=== PATIENT | female | born 1965 | race African-American/Black ===

== ENCOUNTER 2025-03-02 13:56 | Outpatient (AMB) | payer OTHER, SELFPAY ==
--- OUTSIDE RECORDS SUMMARY | 2023-12-17 10:00 | XMS_ITS ---
Author Organization [facility] [address] Address [address] [place] [address] Care Team Providers Care Hoisting Engine Operator Name Role Phone Sharda Guzman Primary Care Provider Unavaila Venice Morris Unavailable [phone] Encounters Encounter Location Date Provider Diagnosis [facility] [address] [facility] [address] [place] [address] 12/17/2023 Venice Quispe Plan Of Treatment Next Appt Details Provider Name:Venice Quispe, 1 05/08/2024 10:15:00 AM, 299 [facility], [address], [address], Provider Name:Venice Quispe, 1 06/12/2024 03:30:00 PM, 299 [facility], [facility] [address], [place], [address], Progress Notes * Rosa REYESOB: 6 (59 yo F)Acc No.[id number]:12/17/2023 Patient: Marika Emely MOON Provider: Kathy Quispe PA-C :1965 A ge:58 Y S ex:Female Date:12/17/2023 Address:[address] [place] [address] Pcp:Sharda Guzman Subjective: * Chief Complaints: * * Medical History: Objective: * Vitals: Assessment: Plan: * Treatment: * Images: Billing Information: * Visit Code: * Procedure Codes: * Electronic signature of Venice Quispe PA-C on 03/02/2025 at 05:51 PM EDT Sign off status: Pending * Provider: Kathy Quispe PA-C Date: 0 12/17/2023 Generated for Pérez mckeon/Noel/Zabrina on: 1 05:51 PM EDT
--- OUTSIDE RECORDS SUMMARY | 2024-01-22 11:30 | XMS_ITS ---
Author Organization [facility] [address] Address [address] [place] [address] Care Team Providers Care Legislative Assistant Name Role Phone Sharda Guzman Primary Care Provider Venice Oconnor Unavailable [phone] Medications Medication SIG (Take, Route, Frequency, Duration) [...] Location Date Provider Diagnosis [facility] [address] [place] [address] 01/22/2024 Venice Quispe Plan Of Treatment Next Appt Details Provider Name:Venice Quispe, 1 05/08/2024 10:15:00 AM, [address] [place] [address], [address], Provider Name:Venice Quispe, 1 06/12/2024 03:30:00 PM, [address] [place] [address], [address], Progress Notes * Rosa REYESOB: 6 (59 yo F)Acc No.[id number]:01/22/2024 Patient: Emely HOUSTON Provider: Kathy Quispe PA-C :1965 A ge:58 Y S ex:Female Date:01/22/2024 Address:[address] [place], [place] [address] Pcp:Sharda Guzman Subjective: * Chief Complaints: * [...] cancer Recent Labs: last yr. PCP: Jorge Guzmna Has had some palpitations, did 4 day [...] of Venice Quispe PA-C on 03/02/2025 at 05:52 PM EDT Sign off status: Pending * Provider: Kathy Quispe PA-C Date: 0 01/22/2024 Generated for Pérez mckeon/Noel/Zabrina on: 1 05:52 PM EDT History and Physical Notes * [...]
--- OUTSIDE RECORDS SUMMARY | 2024-07-19 11:00 | XMS_ITS ---
Author Organization [facility] [address] Address [address] [place] [address] Care Team Providers Care Procurement Cost Coordinator Name Role Phone Sharda Guzman Primary Care Provider Unavaila Venice Morris Unavailable [phone] Encounters Encounter Location Date Provider Diagnosis [facility] [address] [facility] [address] [place] [address] 07/19/2024 Venice Quispe Plan Of Treatment Next Appt Details Provider Name:Venice Quispe, 1 05/08/2024 10:15:00 AM, 299 [facility], [address], [address], Provider Name:Venice Quispe, 1 06/12/2024 03:30:00 PM, 299 [facility], [facility] [address], [place], [address], Progress Notes * Rosa REYESOB: 6 (59 yo F)Acc No.[id number]:07/19/2024 Patient: Marika Emely MOON Provider: Kathy Quispe PA-C :1965 A ge:59 Y S ex:Female Date:07/19/2024 Address:[address] [place] [address] Pcp:Sharda Guzman Subjective: * Chief Complaints: * * Medical History: Objective: * Vitals: Assessment: Plan: * Treatment: * Images: Billing Information: * Visit Code: * Procedure Codes: * Electronic signature of Venice Quispe PA-C on 03/02/2025 at 05:51 PM EDT Sign off status: Pending * Provider: Kathy Quispe PA-C Date: 0 07/19/2024 Generated for Pérez mckeon/Noel/Zabrina on: 1 05:51 PM EDT
--- OUTSIDE RECORDS SUMMARY | 2024-12-21 11:30 | XMS_ITS ---
Author Organization [facility] [address] Address [address] [place] [address] Care Team Providers Care Bulk Receiver Name Role Phone Sharda Guzman Primary Care Provider Venice Oconnor Unavailable [phone] Medications Medication SIG (Take, Route, Frequency, Duration) [...] Date Provider Diagnosis [facility] [address] [address] 12/21/2024 Venice Quispe Plan Of Treatment Next Appt Details Provider Name:Venice Quispe, 1 05/08/2024 10:15:00 AM, [address], [address], Provider Name:Venice Quispe, 1 06/12/2024 03:30:00 PM, [address], [address], Progress Notes * Rosa REYESOB: 6 (59 yo F)Acc No.[id number]:12/21/2024 Patient: Emely HOUSTON Provider: Kathy Quispe PA-C :1965 A ge:59 Y S ex:Female Date:12/21/2024 Address:[address] [place], [place] [address] Pcp:Sharda Guzman Subjective: * Chief Complaints: * [...] 12/21/2024 Generated for Pérez mckeon/Noel/Zabrina on: 1 05:52 PM EDT
--- NOTE | 2025-03-02 13:48 | MHC.PC.OV ---
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 Accompanied by: Self / Same As Patient Allergies sulfamethoxazole (From Bactrim) Allergy (Intermediate, Verified 03/02/25 14:04) lock jaw trimethoprim (From Bactrim) Allergy (Intermediate, Verified 03/02/25 14:04) lock jaw Medication List - Last Reconciled 03/02/25 by Sharda Kent MD aspirin 81 mg PO DAILY semaglutide (weight loss) (Wegovy) 1 mg subcut QWEEK sertraline (Zoloft) 50 mg PO DAILY verapamil ER 300 mg PO BEDTIME Tobacco use date assessed: 03/02/25 Dental Screening Dental Screen Date: 03/02/25 Did you have a dental visit in the last 12 months?: Yes Did you have a dental problem in the last 6 months where you did not have access to dental care?: No Was dental information given to patient?: Patient has dentist HPI HPI Comments History of Present Illness Details The patient is a 59-year-old female presenting for physical and re-establishment of care. Pt also notes she had a fall on her way to appointment at work. Notes some discomfort on right side near hip and lower back. Costochondritis: Recent severe chest pain located under left breast was exacerbated over two weeks. Emergency care was sought. Discharged with plan for OTC meds. Will obtain records Left shoulder pain: Reports of left shoulder pain with significant restriction of motion for several months Anxiety: Reports worsening anxiety with chest fluttering, nighttime awakenings, and disruption of sleep recently. Has been taking sertraline Weight management therapy: Transitioned from Zepbound to Wegovy by weight management provider. Noted reduction in clothing size and improvement in weight. s/p back surgery: Back surgery performed by Dr. Durant; patient reports increased mobility and incorporates exercise in current regimen. Hypertension: compliant with meds Pt also notes episodes of cramping of toes- has trialed magnesium about 1.5 tabs of 250mg Health Maintenance colonoscopy done at [facility] 2022- showed polyps- will obtain pathology report pap smear up to date will schedule bone density- states had menopause for about 20 years Surgical History: - Back surgery - Tubal ligation - Breast surgery Social History: - Works in school setting - Engages in exercise and weight management Review of Systems - HEENT: negative - Cardiovascular: Denies chest pain unrelated to costochondritis - Respiratory: Denies breathing issues - Abdomen: no constipation, no diarrhea - Musculoskeletal: Reports shoulder pain and restricted motion Physical Exam General: NAD HEENT: EOMI, PERRL, mild thyromegaly Chest: CTABL. Card: normal s1, s2 Abd: SNTND, +BS Extremities: no edema Neuro: AOX3 Musculoskeletal- Significant limitation of range of motion in left shoulder, pain with internal and external rotation Assessment and Plan 1. Costochondritis - Use analgesics, and avoid activity-related symptom exacerbation. 2. Left shoulder pain - Get an x-ray, orthopedic evaluation. - Try tylenol prn 3. Anxiety - Increase Sertraline dosage to 75 mg, monitor symptoms. 4. Weight management therapy - Start Wegovy 1.7 mg, confirm if covered by insurance, observe progress. If covered will transition care to PCP office. 5 . Hypertension - continue current regimen 6. Cramps- check magnesium 7. Mild thyromegaly- check thyroid ultrasound Follow up in 2 months Discussion Notes During our visit, I discussed the management options for the patient's ongoing medical issues. For anxiety management, we agreed to increase the Sertraline dosage to 75 mg to better address symptoms. With respect to weight management, a transition to Wegovy 1.7 mg was recommended, ensuring the patient's insurance can adequately cover this medication. I explained her musculoskeletal concerns including the differential diagnosis of possible rotator cuff etiology and the need for further orthopedic evaluation and potential imaging. I touched upon potential injections as an alternative to physical therapy to address shoulder mobility issues, and the patient was responsive to these recommendations. Patient Instructions - Take Sertraline 75 mg daily. - Start Wegovy 1.7 mg as prescribed. - Schedule x-ray for shoulder evaluation. - Follow up in two months or sooner if needed. [facility] Medical History (Updated 03/02/25 @ 17:36 by Sharda Kent MD) Post-menopausal Cramp of toe Left shoulder pain Obesity Routine adult health maintenance Hypertension Surgical History (Updated 03/01/25 @ 15:56 by Maeve Schafer) History of colonoscopy (~11/11/22) Family History (Updated 03/02/25 @ 17:27 by Sharda Kent MD) Other Leukemia Social History Housing: House Patient Tobacco Use Status: Former Tobacco user Years Smoked: occasional back in her 20's e-Cigarette/Vaping Use: Never Used Current occupational status: employed Current occupation: Taxation Inspector Questionnaire AUDIT C Alcohol Use Questionnaire (AUDIT-C) 1. How often do you have a drink containing alcohol?: Never 3. How often do you have six or more drinks on one occasion?: Never Total Score: 0 Physical exam (Primary Care) Vital Signs: Last Vital Signs Temp 97.5 F 03/02/25 14:02 Pulse 72 03/02/25 14:02 Resp 16 03/02/25 14:02 BP 110/64 03/02/25 14:02 Pulse Ox 98 03/02/25 14:02 Oxygen Delivery Method Room Air 03/02/25 14:02 Oxygen Flow Rate 97.5 03/02/25 14:02 BMI result Body Mass Index 30.2 Tobacco/Smoking Status: Tobacco use Status Tobacco use date assessed 03/02/25 03/02/25 13:49 Patient Tobacco Use Status Former Tobacco user 03/02/25 14:15 e-Cigarette/Vaping Use Never Used 03/02/25 14:15 Coding Level of Care Code Est Pt Prev Care 40-64y(87356) Diagnoses Routine adult health maintenance Z00.00 Primary hypertension I10 Hypertension type: primary hypertension Class 1 obesity with body mass index (BMI) of 30.0 to 30.9 in adult, unspecified obesity type, unspecified whether serious comorbidity present E66.9; Z68.30 Obesity type: unspecified obesity type Obesity classification: adult class 1 (BMI 30 - 34.9) Body mass index: BMI 30.0-30.9 Serious obesity comorbidity presence: unspecified whether serious comorbidity present Left shoulder pain, unspecified chronicity M25.512 Chronicity: unspecified Cramp of toe R25.2 Assessment & Plan Assessment & Plan (1) Routine adult health maintenance: Code(s): Z00.00 - Encounter for general adult medical examination without abnormal findings Category: Medical (2) Hypertension: Code(s): I10 - Essential (primary) hypertension Category: Medical Qualifiers: Hypertension type: primary hypertension Qualified Code(s): I10 - Essential (primary) hypertension (3) Obesity: Code(s): E66.9 - Obesity, unspecified Category: Medical Qualifiers: Obesity type: unspecified obesity type Obesity classification: adult class 1 (BMI 30 - 34.9) Body mass index: BMI 30.0-30.9 Serious obesity comorbidity presence: unspecified whether serious comorbidity present Qualified Code(s): E66.9 - Obesity, unspecified; Z68.30 - Body mass index [BMI] 30.0-30.9, adult (4) Left shoulder pain: Code(s): M25.512 - Pain in left shoulder Category: Medical Qualifiers: Chronicity: unspecified Qualified Code(s): M25.512 - Pain in left shoulder (5) Cramp of toe: Code(s): R25.2 - Cramp and spasm Category: Medical Plan - Increase sertraline to 75 mg for anxiety. - Increase Wegovy to 1.7 mg. Verify coverage. - Assess shoulder pain, seek imaging. - Continue dietary and lifestyle modifications for weight management Orders: Orders Lipid Panel Today I10 - Essential (primary) hypertension Complete Blood Count Auto Diff Today Z00.00 - Encounter for general adult medical examination without abnormal findings XR shoulder LT min 2V Today M25.512 - Pain in left shoulder XR DEXA axial skeleton Today Z78.0 - Asymptomatic menopausal state US thyroid Today E01.0 - Iodine-deficiency related diffuse (endemic) goiter Comprehensive Met. Panel Today I10 - Essential (primary) hypertension Magnesium Today R25.2 - Cramp and spasm Referrals Orthopedics Referral M25.512 - Pain in left shoulder Medications: New semaglutide (weight loss) (Wegovy) 1.7 mg (0.75 mL) subcut QWEEK 3 mL 1RF verapamil ER 300 mg PO BEDTIME 90 caps 3RF sertraline (Zoloft) 75 mg (1.5 x 50 mg) PO DAILY 135 tabs 3RF
[2025-03-02 14:02] VITALS: BP 110/64; PULSE 72; RESP 16; TEMP 36.4; O2SAT 98; BMI 30.2
--- OUTSIDE RECORDS SUMMARY | 2025-03-02 17:52 | XMS_ITS | Patient Health Record ---
Author Organization [facility] Address [address] [place] [address] Care Team Providers Care Cotton Converter Name Role Phone Sharda Guzman Primary Care Provider [place] Oconnor Unavailable [phone] Allergies Allergen (clinical drug ingredient) Drug/Non Drug Allergy documented on EMR Reaction Allergy Type Onset Date Status sulfamethoxazole / trimethoprim Bactrim Unknown Drug Allergy Active Reason For Referral No Information Medications Medication SIG (Take, Route, Frequency, Duration) Notes Start Date End Date Status Verapamil HCl ER 300 MG TAKE 1 CAPSULE B Y MOUTH AT BEDTIME Oral; Duration: 90 Days Active Zepbound 5 MG/0.5ML 0.5 mL Subcutaneous; Duration: 30 day(s) Not-Taking Wegovy 1 MG/0.5ML 0.5 mL Subcutaneous once weekly; Duration: 30 days Active Sertraline HCl 50 MG 1 tablet Orally Onc e a day Active Magnesium Glycinate 100 MG TAKE 2 CAPSULES BY MOUTH EVERY DAY Oral; Duration: 30 Days Active Social History Tobacco Use: Social History Observation Description Date Details (start date - stop date) Never Smoker NA - NA Tobacco Use/Smoking Question Answer Notes Are you a nonsmoker Alcohol Screen (Audit-C) Question Answer Notes Did you have a drink containing alcohol in the p ast year? No Points 0 Interpretation Negative Problems Problem Type SNOMED Code ICD Code Onset Dates Problem Status W/U Status Risk Notes Problem Vitamin D deficiency (75951449) Vitamin D deficiency, unspecified (E55.9) Active confirmed Problem Obesity due to excess calories (482927934) Other obesity due to excess calories (E66.09) Active confirmed Problem Anxiety (61214090) Anxiety (F41.9) Active confirmed Problem Thyroid nodule (855589893) Thyroid nodule (E04.1) Active confirmed Problem Obstructive sleep apnea syndrome (06978570) ALEXANDER (obstructive sleep apnea) (G47.33) Active confirmed Problem Obese class II (917947344478256 ) BMI 35.0-35.9,adult (Z68.35) Active confirmed Problem BMI 30+ - obesity (135322522) BMI 32.0-32.9,adult (Z68.32) Active confirmed Problem Primary hypertension (70473533) Primary hypertension (I10) Active confirmed Problem Body mass index 30.00 to 34.99 (626107773286282 ) BMI 31.0-31.9,adult (Z68.31) Active confirmed Problem Body mass index 30.00 to 34.99 (848037188010592 ) BMI 34.0-34.9,adult (Z68.34) Active confirmed Vital Signs Heart Rate 81 /min 01/25/2025 Blood pressure diastolic 82 mm Hg 01/25/2025 Oximetry 99 % 01/25/2025 Height 65.75 in 01/25/2025 Blood pressure systolic 132 mm Hg 01/25/2025 Weight 192.9 lbs 01/25/2025 BMI 31.37 kg/m2 01/25/2025 Encounters Encounter Location Date Provider Diagnosis [facility] [address] [address] 07/21/2024 Venice Svrcek Other obesity due to excess calories E66.09 ; BMI 35.0-35.9,adult Z68.35 ; ALEXANDER (obstructive sleep apnea) G47.33 ; Primary hypertension I10 ; Anxiety F41.9 ; Thyroid nodule E04.1 and Weight loss counseling, encounter for Z71.3 [facility] [address] [address] 08/25/2024 [place] Svrcek Other obesity due to excess calories E66.09 ; BMI 34.0-34.9,adult Z68.34 ; ALEXANDER (obstructive sleep apnea) G47.33 ; Primary hypertension I10 ; Anxiety F41.9 ; Thyroid nodule E04.1 and Weight loss counseling, encounter for Z71.3 [facility] [address] [address] 10/07/2024 [place] Svrcek Other obesity due to excess calories E66.09 ; BMI 32.0-32.9,adult Z68.32 ; ALEXANDER (obstructive sleep apnea) G47.33 ; Primary hypertension I10 and Weight loss counseling, encounter for Z71.3 [facility] [address] [address] 11/04/2024 [place] Svrcek Other obesity due to excess calories E66.09 ; BMI 32.0-32.9,adult Z68.32 ; ALEXANDER (obstructive sleep apnea) G47.33 ; Primary hypertension I10 and Weight loss counseling, encounter for Z71.3 [facility] [address] [address] 01/25/2025 [place] Svrcek Other obesity due to excess calories E66.09 ; BMI 31.0-31.9,adult Z68.31 ; ALEXANDER (obstructive sleep apnea) G47.33 ; Primary hypertension I10 and Weight loss counseling, encounter for Z71.[address] [facility] [address] [place] [address] 06/23/2024 [place] Svrcek [facility] [address] [address] 07/21/2024 [place] Svrcek [facility] [address] [address] 07/26/2024 [place] Svrcek Other obesity due to excess calories E66.09 [facility] [address] [address] 10/07/2024 [place] Svrcek Other obesity due to excess calories E66.[address] [facility] [address] [place] [address] 10/28/2024 [place] Svrcek [facility] [address] [address] 11/04/2024 [place] Svrcek [facility] [address] [place] [address] 11/25/2024 [place] Svrcek [facility] [address] [address] 12/20/2024 [place] Svrcek [facility] [address] [place] [address] 12/22/2024 Venice Quispe Other obesity due to excess calories E66.09 Assessments Encounter Date Diagnosis (ICD Code) Assessment Notes Treatment Notes Treatment Clinical Notes Section Notes 07/21/2024 Other obesity due to excess calories (ICD-10 - E66.09) #Obesity. 07/21/24: 218.4 pounds, BMI 35.5. Welcomed back after long hiatus since her initial consult. Discussed medication options in detail. Most interested in Zepbound. Will prescribe today and start PA process. Discussed we will follow-up with patient pending PA determination. We discussed importance of keeping follow-up visits. Also discussed importance of lifestyle modifications. Continue to work towards increased protein intake with a goal of 80 to 100 g a day, increase water intake and regular exercise. She is awaiting an MRI of her back due to persistent sciatic pain which has limited her exercise. Is to add probiotics daily and B complex. Reviewed risk benefits adverse effects of Zepbound in detail with patient. Demonstrated proper use of pen autoinjector. Will follow-up with me in 1 month sooner with any concerns. #ALEXANDER. Reports history of ALEXANDER. She was given a CPAP machine however was unable to tolerate it and has since returned it. She would benefit from Zepbound. #Hypertension. Has been well-controlled on verapamil. Followed by PCP. #Anxiety. Stable on sertraline and followed by PCP. #Thyroid nodule. Reports history of thyroid nodule with benign biopsy. Denies any personal or family history of thyroid cancer. The patient will continue exercise regimen with an emphasis on improving/increasing steps to at least 6,000-10,000 steps per day. Increasing cardio and strength training exercises as tolerated to improve weight loss and work on building muscle mass. Patient is committed to smarter eating with calorie counting and mindful eating. Limiting processed foods and carbohydrates and increasing leafy greens and lean proteins as well as fruits into their diet. Patient was counseled on the importance of eating local, organic food when possible. Patient has been counseled regarding effects of GLP/GIP-1 agonists and other FDA approved weight loss medications with regards to a multifactorial approach of weight loss as mentioned above and that the medication alone will not be sufficient to meet patients goals. We discussed holistic medication approach with emphasis on lifestyle modification. Discussed obesity as it increases risk of diabetes, cardiovascular disease, and/or organ damage. We spent a lot of time discussing the relationship between food, exercise, sleep, mental health, and obesity. We discussed the importance of having SECAs done every visit and having accountability done during these visits. That the scale is done to monitor not only weight loss but the body composition during medication management and healthy lifestyle changes. We discussed that if the patient is unable at times to financially afford this scale that we would rather waive the fee and have the scale done than have the patient not have the scale obtained. Will follow up with the patient in 4 weeks time to monitor weight loss. Total time was 45 min, greater than 50 % of time was spent on care coordination Case discussed with collaborating physician Dana Matthews who reviewed the assessment and plan. Chart, medications, labs, vital signs reviewed. Dictation was accomplished with the use of [employer] voice recognition software, prone to medical misidentifications and grammatical errors. This is unintentional and the practitioner does try to identify and correct these, but some could still be present. Please do not hesitate to contact practitioner for clarification. All questions answered to patients satisfaction. Patient verbalized understanding of diagnosis and treatments explained. To call sooner prior to next visit it any questions/concerns arise. 07/21/2024 BMI 35.0-35.9,adult (ICD-10 - Z68.35) #Obesity. 07/21/24: 218.4 pounds, BMI 35.5. Welcomed back after long hiatus since her initial consult. Discussed medication options in detail. Most interested in Zepbound. Will prescribe today and start PA process. Discussed we will follow-up with patient pending PA determination. We discussed importance of keeping follow-up visits. Also discussed importance of lifestyle modifications. Continue to work towards increased protein intake with a goal of 80 to 100 g a day, increase water intake and regular exercise. She is awaiting an MRI of her back due to persistent sciatic pain which has limited her exercise. Is to add probiotics daily and B complex. Reviewed risk benefits adverse effects of Zepbound in detail with patient. Demonstrated proper use of pen autoinjector. Will follow-up with me in 1 month sooner with any concerns. #ALEXANDER. Reports history of ALEXANDER. She was given a CPAP machine however was unable to tolerate it and has since returned it. She would benefit from Zepbound. #Hypertension. Has been well-controlled on verapamil. Followed by PCP. #Anxiety. Stable on sertraline and followed by PCP. #Thyroid nodule. Reports history of thyroid nodule with benign biopsy. Denies any personal or family history of thyroid cancer. The patient will continue exercise regimen with an emphasis on improving/increasing steps to at least 6,000-10,000 steps per day. Increasing cardio and strength training exercises as tolerated to improve weight loss and work on building muscle mass. Patient is committed to smarter eating with calorie counting and mindful eating. Limiting processed foods and carbohydrates and increasing leafy greens and lean proteins as well as fruits into their diet. Patient was counseled on the importance of eating local, organic food when possible. Patient has been counseled regarding effects of GLP/GIP-1 agonists and other FDA approved weight loss medications with regards to a multifactorial approach of weight loss as mentioned above and that the medication alone will not be sufficient to meet patients goals. We discussed holistic medication approach with emphasis on lifestyle modification. Discussed obesity as it increases risk of diabetes, cardiovascular disease, and/or organ damage. We spent a lot of time discussing the relationship between food, exercise, sleep, mental health, and obesity. We discussed the importance of having SECAs done every visit and having accountability done during these visits. That the scale is done to monitor not only weight loss but the body composition during medication management and healthy lifestyle changes. We discussed that if the patient is unable at times to financially afford this scale that we would rather waive the fee and have the scale done than have the patient not have the scale obtained. Will follow up with the patient in 4 weeks time to monitor weight loss. Total time was 45 min, greater than 50 % of time was spent on care coordination Case discussed with collaborating physician Dana Matthews who reviewed the assessment and plan. Chart, medications, labs, vital signs reviewed. Dictation was accomplished with the use of [employer] voice recognition software, prone to medical misidentifications and grammatical errors. This is unintentional and the practitioner does try to identify and correct these, but some could still be present. Please do not hesitate to contact practitioner for clarification. All questions answered to patients satisfaction. Patient verbalized understanding of diagnosis and treatments explained. To call sooner prior to next visit it any questions/concerns arise. 07/26/2024 Other obesity due to excess calories (ICD-10 - E66.09) 08/25/2024 Other obesity due to excess calories (ICD-10 - E66.09) #Obesity. 08/25/24: 212.1 pounds, BMI 34.5. She was approved Zepbound and has completed 4 weeks of 2.5 mg dose. She is down 6 pounds and has tolerated it well without side effects. Unfortunately she does have to have spine surgery with lumbar decompression next week. She did hold her dose this week and has been instructed that she may resume postop. Sample of Zepbound 2.5 mg given today advised to resume at 2.5 mg dose for 1 to 2 weeks postop and then can increase to 5 mg dose thereafter. We did discuss importance of bowel regimen postop as well. Follow-up with me in 6 weeks as she will be recovering from surgery. Follow-up sooner with any concerns. #ALEXANDER. Reports history of ALEXANDER. She was given a CPAP machine however was unable to tolerate it and has since returned it. Now on Zepbound. #Hypertension. Has been well-controlled on verapamil. Followed by PCP. #Anxiety. Stable on sertraline and followed by PCP. #Thyroid nodule. Reports history of thyroid nodule with benign biopsy. Denies any personal or family history of thyroid cancer. The patient will continue exercise regimen with an emphasis on improving/increasing steps to at least 6,000-10,000 steps per day. Increasing cardio and strength training exercises as tolerated to improve weight loss and work on building muscle mass. Patient is committed to smarter eating with calorie counting and mindful eating. Limiting processed foods and carbohydrates and increasing leafy greens and lean proteins as well as fruits into their diet. Patient was counseled on the importance of eating local, organic food when possible. Patient has been counseled regarding effects of GLP/GIP-1 agonists and other FDA approved weight loss medications with regards to a multifactorial approach of weight loss as mentioned above and that the medication alone will not be sufficient to meet patients goals. We discussed holistic medication approach with emphasis on lifestyle modification. Discussed obesity as it increases risk of diabetes, cardiovascular disease, and/or organ damage. We spent a lot of time discussing the relationship between food, exercise, sleep, mental health, and obesity. We discussed the importance of having SECAs done every visit and having accountability done during these visits. That the scale is done to monitor not only weight loss but the body composition during medication management and healthy lifestyle changes. We discussed that if the patient is unable at times to financially afford this scale that we would rather waive the fee and have the scale done than have the patient not have the scale obtained. Will follow up with the patient in 4 weeks time to monitor weight loss. Total time was 30 min, greater than 50 % of time was spent on care coordination Case discussed with collaborating physician Dana Matthews who reviewed the assessment and plan. Chart, medications, labs, vital signs reviewed. Dictation was accomplished with the use of [employer] voice recognition software, prone to medical misidentifications and grammatical errors. This is unintentional and the practitioner does try to identify and correct these, but some could still be present. Please do not hesitate to contact practitioner for clarification. All questions answered to patients satisfaction. Patient verbalized understanding of diagnosis and treatments explained. To call sooner prior to next visit it any questions/concerns arise. 08/25/2024 BMI 34.0-34.9,adult (ICD-10 - Z68.34) #Obesity. 08/25/24: 212.1 pounds, BMI 34.5. She was approved Zepbound and has completed 4 weeks of 2.5 mg dose. She is down 6 pounds and has tolerated it well without side effects. Unfortunately she does have to have spine surgery with lumbar decompression next week. She did hold her dose this week and has been instructed that she may resume postop. Sample of Zepbound 2.5 mg given today advised to resume at 2.5 mg dose for 1 to 2 weeks postop and then can increase to 5 mg dose thereafter. We did discuss importance of bowel regimen postop as well. Follow-up with me in 6 weeks as she will be recovering from surgery. Follow-up sooner with any concerns. #ALEXANDER. Reports history of ALEXANDER. She was given a CPAP machine however was unable to tolerate it and has since returned it. Now on Zepbound. #Hypertension. Has been well-controlled on verapamil. Followed by PCP. #Anxiety. Stable on sertraline and followed by PCP. #Thyroid nodule. Reports history of thyroid nodule with benign biopsy. Denies any personal or family history of thyroid cancer. The patient will continue exercise regimen with an emphasis on improving/increasing steps to at least 6,000-10,000 steps per day. Increasing cardio and strength training exercises as tolerated to improve weight loss and work on building muscle mass. Patient is committed to smarter eating with calorie counting and mindful eating. Limiting processed foods and carbohydrates and increasing leafy greens and lean proteins as well as fruits into their diet. Patient was counseled on the importance of eating local, organic food when possible. Patient has been counseled regarding effects of GLP/GIP-1 agonists and other FDA approved weight loss medications with regards to a multifactorial approach of weight loss as mentioned above and that the medication alone will not be sufficient to meet patients goals. We discussed holistic medication approach with emphasis on lifestyle modification. Discussed obesity as it increases risk of diabetes, cardiovascular disease, and/or organ damage. We spent a lot of time discussing the relationship between food, exercise, sleep, mental health, and obesity. We discussed the importance of having SECAs done every visit and having accountability done during these visits. That the scale is done to monitor not only weight loss but the body composition during medication management and healthy lifestyle changes. We discussed that if the patient is unable at times to financially afford this scale that we would rather waive the fee and have the scale done than have the patient not have the scale obtained. Will follow up with the patient in 4 weeks time to monitor weight loss. Total time was 30 min, greater than 50 % of time was spent on care coordination Case discussed with collaborating physician Dana Matthews who reviewed the assessment and plan. Chart, medications, labs, vital signs reviewed. Dictation was accomplished with the use of [employer] voice recognition software, prone to medical misidentifications and grammatical errors. This is unintentional and the practitioner does try to identify and correct these, but some could still be present. Please do not hesitate to contact practitioner for clarification. All questions answered to patients satisfaction. Patient verbalized understanding of diagnosis and treatments explained. To call sooner prior to next visit it any questions/concerns arise. 10/07/2024 Other obesity due to excess calories (ICD-10 - E66.09) #Obesity. 10/07/24: 201.6 pounds, BMI 32.8. She is doing fantastic on Zepbound 5 mg. She is healing well from her surgery and will slowly increase exercise as dictated by her surgeon. Continue consistent protein intake and hydration. Will continue current regimen and follow-up with me again in 1 month. Follow-up sooner with any concerns. #ALEXANDER. Reports history of ALEXANDER. She was given a CPAP machine however was unable to tolerate it and has since returned it. Now on Zepbound. #Hypertension. Has been well-controlled on verapamil. Followed by PCP. The patient will continue exercise regimen with an emphasis on improving/increasing steps to at least 6,000-10,000 steps per day. Increasing cardio and strength training exercises as tolerated to improve weight loss and work on building muscle mass. Patient is committed to smarter eating with calorie counting and mindful eating. Limiting processed foods and carbohydrates and increasing leafy greens and lean proteins as well as fruits into their diet. Patient was counseled on the importance of eating local, organic food when possible. Patient has been counseled regarding effects of GLP/GIP-1 agonists and other FDA approved weight loss medications with regards to a multifactorial approach of weight loss as mentioned above and that the medication alone will not be sufficient to meet patients goals. We discussed holistic medication approach with emphasis on lifestyle modification. Discussed obesity as it increases risk of diabetes, cardiovascular disease, and/or organ damage. We spent a lot of time discussing the relationship between food, exercise, sleep, mental health, and obesity. We discussed the importance of having SECAs done every visit and having accountability done during these visits. That the scale is done to monitor not only weight loss but the body composition during medication management and healthy lifestyle changes. We discussed that if the patient is unable at times to financially afford this scale that we would rather waive the fee and have the scale done than have the patient not have the scale obtained. Will follow up with the patient in 4 weeks time to monitor weight loss. Total time was 30 min, greater than 50 % of time was spent on care coordination Case discussed with collaborating physician Dana Matthews who reviewed the assessment and plan. Chart, medications, labs, vital signs reviewed. Dictation was accomplished with the use of [employer] voice recognition software, prone to medical misidentifications and grammatical errors. This is unintentional and the practitioner does try to identify and correct these, but some could still be present. Please do not hesitate to contact practitioner for clarification. All questions answered to patients satisfaction. Patient verbalized understanding of diagnosis and treatments explained. To call sooner prior to next visit it any questions/concerns arise. 10/07/2024 BMI 32.0-32.9,adult (ICD-10 - Z68.32) #Obesity. 10/07/24: 201.6 pounds, BMI 32.8. She is doing fantastic on Zepbound 5 mg. She is healing well from her surgery and will slowly increase exercise as dictated by her surgeon. Continue consistent protein intake and hydration. Will continue current regimen and follow-up with me again in 1 month. Follow-up sooner with any concerns. #ALEXANDER. Reports history of ALEXANDER. She was given a CPAP machine however was unable to tolerate it and has since returned it. Now on Zepbound. #Hypertension. Has been well-controlled on verapamil. Followed by PCP. The patient will continue exercise regimen with an emphasis on improving/increasing steps to at least 6,000-10,000 steps per day. Increasing cardio and strength training exercises as tolerated to improve weight loss and work on building muscle mass. Patient is committed to smarter eating with calorie counting and mindful eating. Limiting processed foods and carbohydrates and increasing leafy greens and lean proteins as well as fruits into their diet. Patient was counseled on the importance of eating local, organic food when possible. Patient has been counseled regarding effects of GLP/GIP-1 agonists and other FDA approved weight loss medications with regards to a multifactorial approach of weight loss as mentioned above and that the medication alone will not be sufficient to meet patients goals. We discussed holistic medication approach with emphasis on lifestyle modification. Discussed obesity as it increases risk of diabetes, cardiovascular disease, and/or organ damage. We spent a lot of time discussing the relationship between food, exercise, sleep, mental health, and obesity. We discussed the importance of having SECAs done every visit and having accountability done during these visits. That the scale is done to monitor not only weight loss but the body composition during medication management and healthy lifestyle changes. We discussed that if the patient is unable at times to financially afford this scale that we would rather waive the fee and have the scale done than have the patient not have the scale obtained. Will follow up with the patient in 4 weeks time to monitor weight loss. Total time was 30 min, greater than 50 % of time was spent on care coordination Case discussed with collaborating physician Dana Matthews who reviewed the assessment and plan. Chart, medications, labs, vital signs reviewed. Dictation was accomplished with the use of [employer] voice recognition software, prone to medical misidentifications and grammatical errors. This is unintentional and the practitioner does try to identify and correct these, but some could still be present. Please do not hesitate to contact practitioner for clarification. All questions answered to patients satisfaction. Patient verbalized understanding of diagnosis and treatments explained. To call sooner prior to next visit it any questions/concerns arise. 10/07/2024 Other obesity due to excess calories (ICD-10 - E66.09) 11/04/2024 Other obesity due to excess calories (ICD-10 - E66.09) #Obesity. 11/04/24: 197.4 pounds, BMI 32.1. She is doing well on Zepbound 5 mg. Unfortunately her insurance has changed this month and current plan does not cover Zepbound. She does think that they cover Wegovy. Will transition to Wegovy 0.25 mg dose. Discussed proper use and demonstrated pen autoinjector here in office. Reviewed risk benefits adverse effects of medication. Discussed we will titrate up her dose. Continue to work on consistent protein intake, hydration and regular exercise. Follow-up with me in 1 month sooner with any concerns. #ALEXANDER. Reports history of ALEXANDER. She was given a CPAP machine however was unable to tolerate it and has since returned it. #Hypertension. Has been well-controlled on verapamil. Followed by PCP. The patient will continue exercise regimen with an emphasis on improving/increasing steps to at least 6,000-10,000 steps per day. Increasing cardio and strength training exercises as tolerated to improve weight loss and work on building muscle mass. Patient is committed to smarter eating with calorie counting and mindful eating. Limiting processed foods and carbohydrates and increasing leafy greens and lean proteins as well as fruits into their diet. Patient was counseled on the importance of eating local, organic food when possible. Patient has been counseled regarding effects of GLP/GIP-1 agonists and other FDA approved weight loss medications with regards to a multifactorial approach of weight loss as mentioned above and that the medication alone will not be sufficient to meet patients goals. We discussed holistic medication approach with emphasis on lifestyle modification. Discussed obesity as it increases risk of diabetes, cardiovascular disease, and/or organ damage. We spent a lot of time discussing the relationship between food, exercise, sleep, mental health, and obesity. We discussed the importance of having SECAs done every visit and having accountability done during these visits. That the scale is done to monitor not only weight loss but the body composition during medication management and healthy lifestyle changes. We discussed that if the patient is unable at times to financially afford this scale that we would rather waive the fee and have the scale done than have the patient not have the scale obtained. Will follow up with the patient in 4 weeks time to monitor weight loss. Total time was 30 min, greater than 50 % of time was spent on care coordination Case discussed with collaborating physician Dana Matthews who reviewed the assessment and plan. Chart, medications, labs, vital signs reviewed. Dictation was accomplished with the use of [employer] voice recognition software, prone to medical misidentifications and grammatical errors. This is unintentional and the practitioner does try to identify and correct these, but some could still be present. Please do not hesitate to contact practitioner for clarification. All questions answered to patients satisfaction. Patient verbalized understanding of diagnosis and treatments explained. To call sooner prior to next visit it any questions/concerns arise. 11/04/2024 BMI 32.0-32.9,adult (ICD-10 - Z68.32) #Obesity. 11/04/24: 197.4 pounds, BMI 32.1. She is doing well on Zepbound 5 mg. Unfortunately her insurance has changed this month and current plan does not cover Zepbound. She does think that they cover Wegovy. Will transition to Wegovy 0.25 mg dose. Discussed proper use and demonstrated pen autoinjector here in office. Reviewed risk benefits adverse effects of medication. Discussed we will titrate up her dose. Continue to work on consistent protein intake, hydration and regular exercise. Follow-up with me in 1 month sooner with any concerns. #ALEXANDER. Reports history of ALEXANDER. She was given a CPAP machine however was unable to tolerate it and has since returned it. #Hypertension. Has been well-controlled on verapamil. Followed by PCP. The patient will continue exercise regimen with an emphasis on improving/increasing steps to at least 6,000-10,000 steps per day. Increasing cardio and strength training exercises as tolerated to improve weight loss and work on building muscle mass. Patient is committed to smarter eating with calorie counting and mindful eating. Limiting processed foods and carbohydrates and increasing leafy greens and lean proteins as well as fruits into their diet. Patient was counseled on the importance of eating local, organic food when possible. Patient has been counseled regarding effects of GLP/GIP-1 agonists and other FDA approved weight loss medications with regards to a multifactorial approach of weight loss as mentioned above and that the medication alone will not be sufficient to meet patients goals. We discussed holistic medication approach with emphasis on lifestyle modification. Discussed obesity as it increases risk of diabetes, cardiovascular disease, and/or organ damage. We spent a lot of time discussing the relationship between food, exercise, sleep, mental health, and obesity. We discussed the importance of having SECAs done every visit and having accountability done during these visits. That the scale is done to monitor not only weight loss but the body composition during medication management and healthy lifestyle changes. We discussed that if the patient is unable at times to financially afford this scale that we would rather waive the fee and have the scale done than have the patient not have the scale obtained. Will follow up with the patient in 4 weeks time to monitor weight loss. Total time was 30 min, greater than 50 % of time was spent on care coordination Case discussed with collaborating physician Dana Matthews who reviewed the assessment and plan. Chart, medications, labs, vital signs reviewed. Dictation was accomplished with the use of [employer] voice recognition software, prone to medical misidentifications and grammatical errors. This is unintentional and the practitioner does try to identify and correct these, but some could still be present. Please do not hesitate to contact practitioner for clarification. All questions answered to patients satisfaction. Patient verbalized understanding of diagnosis and treatments explained. To call sooner prior to next visit it any questions/concerns arise. 12/22/2024 Other obesity due to excess calories (ICD-10 - E66.09) 01/25/2025 Other obesity due to excess calories (ICD-10 - E66.09) #Obesity. 01/25/25: 192.9 pounds, BMI 31.4. She is doing well on Wegovy 0.5 mg weekly. Will plan to increase to 1 mg dose on next refill. Continue with consistent exercise, hydration and regular protein intake. Follow-up with me again in 1 month sooner with any concerns. #ALEXANDER. Reports history of ALEXANDER. She was given a CPAP machine however was unable to tolerate it and has since returned it. Working on weight reduction. #Hypertension. Has been well-controlled on verapamil. Followed by PCP. The patient will continue exercise regimen with an emphasis on improving/increasing steps to at least 6,000-10,000 steps per day. Increasing cardio and strength training exercises as tolerated to improve weight loss and work on building muscle mass. Patient is committed to smarter eating with calorie counting and mindful eating. Limiting processed foods and carbohydrates and increasing leafy greens and lean proteins as well as fruits into their diet. Patient was counseled on the importance of eating local, organic food when possible. Patient has been counseled regarding effects of GLP/GIP-1 agonists and other FDA approved weight loss medications with regards to a multifactorial approach of weight loss as mentioned above and that the medication alone will not be sufficient to meet patients goals. We discussed holistic medication approach with emphasis on lifestyle modification. Discussed obesity as it increases risk of diabetes, cardiovascular disease, and/or organ damage. We spent a lot of time discussing the relationship between food, exercise, sleep, mental health, and obesity. We discussed the importance of having SECAs done every visit and having accountability done during these visits. That the scale is done to monitor not only weight loss but the body composition during medication management and healthy lifestyle changes. We discussed that if the patient is unable at times to financially afford this scale that we would rather waive the fee and have the scale done than have the patient not have the scale obtained. Will follow up with the patient in 4 weeks time to monitor weight loss. Total time was 30 min, greater than 50 % of time was spent on care coordination Case discussed with collaborating physician Dana Matthews who reviewed the assessment and plan. Chart, medications, labs, vital signs reviewed. Dictation was accomplished with the use of [employer] voice recognition software, prone to medical misidentifications and grammatical errors. This is unintentional and the practitioner does try to identify and correct these, but some could still be present. Please do not hesitate to contact practitioner for clarification. All questions answered to patients satisfaction. Patient verbalized understanding of diagnosis and treatments explained. To call sooner prior to next visit it any questions/concerns arise. 01/25/2025 BMI 31.0-31.9,adult (ICD-10 - Z68.31) #Obesity. 01/25/25: 192.9 pounds, BMI 31.4. She is doing well on Wegovy 0.5 mg weekly. Will plan to increase to 1 mg dose on next refill. Continue with consistent exercise, hydration and regular protein intake. Follow-up with me again in 1 month sooner with any concerns. #ALEXANDER. Reports history of ALEXANDER. She was given a CPAP machine however was unable to tolerate it and has since returned it. Working on weight reduction. #Hypertension. Has been well-controlled on verapamil. Followed by PCP. The patient will continue exercise regimen with an emphasis on improving/increasing steps to at least 6,000-10,000 steps per day. Increasing cardio and strength training exercises as tolerated to improve weight loss and work on building muscle mass. Patient is committed to smarter eating with calorie counting and mindful eating. Limiting processed foods and carbohydrates and increasing leafy greens and lean proteins as well as fruits into their diet. Patient was counseled on the importance of eating local, organic food when possible. Patient has been counseled regarding effects of GLP/GIP-1 agonists and other FDA approved weight loss medications with regards to a multifactorial approach of weight loss as mentioned above and that the medication alone will not be sufficient to meet patients goals. We discussed holistic medication approach with emphasis on lifestyle modification. Discussed obesity as it increases risk of diabetes, cardiovascular disease, and/or organ damage. We spent a lot of time discussing the relationship between food, exercise, sleep, mental health, and obesity. We discussed the importance of having SECAs done every visit and having accountability done during these visits. That the scale is done to monitor not only weight loss but the body composition during medication management and healthy lifestyle changes. We discussed that if the patient is unable at times to financially afford this scale that we would rather waive the fee and have the scale done than have the patient not have the scale obtained. Will follow up with the patient in 4 weeks time to monitor weight loss. Total time was 30 min, greater than 50 % of time was spent on care coordination Case discussed with collaborating physician Dana Mtathews who reviewed the assessment and plan. Chart, medications, labs, vital signs reviewed. Dictation was accomplished with the use of [employer] voice recognition software, prone to medical misidentifications and grammatical errors. This is unintentional and the practitioner does try to identify and correct these, but some could still be present. Please do not hesitate to contact practitioner for clarification. All questions answered to patients satisfaction. Patient verbalized understanding of diagnosis and treatments explained. To call sooner prior to next visit it any questions/concerns arise. 07/21/2024 ALEXANDER (obstructive sleep apnea) (ICD-10 - G47.33) #Obesity. 07/21/24: 218.4 pounds, BMI 35.5. Welcomed back after long hiatus since her initial consult. Discussed medication options in detail. Most interested in Zepbound. Will prescribe today and start PA process. Discussed we will follow-up with patient pending PA determination. We discussed importance of keeping follow-up visits. Also discussed importance of lifestyle modifications. Continue to work towards increased protein intake with a goal of 80 to 100 g a day, increase water intake and regular exercise. She is awaiting an MRI of her back due to persistent sciatic pain which has limited her exercise. Is to add probiotics daily and B complex. Reviewed risk benefits adverse effects of Zepbound in detail with patient. Demonstrated proper use of pen autoinjector. Will follow-up with me in 1 month sooner with any concerns. #ALEXANDER. Reports history of ALEXANDER. She was given a CPAP machine however was unable to tolerate it and has since returned it. She would benefit from Zepbound. #Hypertension. Has been well-controlled on verapamil. Followed by PCP. #Anxiety. Stable on sertraline and followed by PCP. #Thyroid nodule. Reports history of thyroid nodule with benign biopsy. Denies any personal or family history of thyroid cancer. The patient will continue exercise regimen with an emphasis on improving/increasing steps to at least 6,000-10,000 steps per day. Increasing cardio and strength training exercises as tolerated to improve weight loss and work on building muscle mass. Patient is committed to smarter eating with calorie counting and mindful eating. Limiting processed foods and carbohydrates and increasing leafy greens and lean proteins as well as fruits into their diet. Patient was counseled on the importance of eating local, organic food when possible. Patient has been counseled regarding effects of GLP/GIP-1 agonists and other FDA approved weight loss medications with regards to a multifactorial approach of weight loss as mentioned above and that the medication alone will not be sufficient to meet patients goals. We discussed holistic medication approach with emphasis on lifestyle modification. Discussed obesity as it increases risk of diabetes, cardiovascular disease, and/or organ damage. We spent a lot of time discussing the relationship between food, exercise, sleep, mental health, and obesity. We discussed the importance of having SECAs done every visit and having accountability done during these visits. That the scale is done to monitor not only weight loss but the body composition during medication management and healthy lifestyle changes. We discussed that if the patient is unable at times to financially afford this scale that we would rather waive the fee and have the scale done than have the patient not have the scale obtained. Will follow up with the patient in 4 weeks time to monitor weight loss. Total time was 45 min, greater than 50 % of time was spent on care coordination Case discussed with collaborating physician Dana Matthews who reviewed the assessment and plan. Chart, medications, labs, vital signs reviewed. Dictation was accomplished with the use of [employer] voice recognition software, prone to medical misidentifications and grammatical errors. This is unintentional and the practitioner does try to identify and correct these, but some could still be present. Please do not hesitate to contact practitioner for clarification. All questions answered to patients satisfaction. Patient verbalized understanding of diagnosis and treatments explained. To call sooner prior to next visit it any questions/concerns arise. 01/25/2025 ALEXANDER (obstructive sleep apnea) (ICD-10 - G47.33) #Obesity. 01/25/25: 192.9 pounds, BMI 31.4. She is doing well on Wegovy 0.5 mg weekly. Will plan to increase to 1 mg dose on next refill. Continue with consistent exercise, hydration and regular protein intake. Follow-up with me again in 1 month sooner with any concerns. #ALEXANDER. Reports history of ALEXANDER. She was given a CPAP machine however was unable to tolerate it and has since returned it. Working on weight reduction. #Hypertension. Has been well-controlled on verapamil. Followed by PCP. The patient will continue exercise regimen with an emphasis on improving/increasing steps to at least 6,000-10,000 steps per day. Increasing cardio and strength training exercises as tolerated to improve weight loss and work on building muscle mass. Patient is committed to smarter eating with calorie counting and mindful eating. Limiting processed foods and carbohydrates and increasing leafy greens and lean proteins as well as fruits into their diet. Patient was counseled on the importance of eating local, organic food when possible. Patient has been counseled regarding effects of GLP/GIP-1 agonists and other FDA approved weight loss medications with regards to a multifactorial approach of weight loss as mentioned above and that the medication alone will not be sufficient to meet patients goals. We discussed holistic medication approach with emphasis on lifestyle modification. Discussed obesity as it increases risk of diabetes, cardiovascular disease, and/or organ damage. We spent a lot of time discussing the relationship between food, exercise, sleep, mental health, and obesity. We discussed the importance of having SECAs done every visit and having accountability done during these visits. That the scale is done to monitor not only weight loss but the body composition during medication management and healthy lifestyle changes. We discussed that if the patient is unable at times to financially afford this scale that we would rather waive the fee and have the scale done than have the patient not have the scale obtained. Will follow up with the patient in 4 weeks time to monitor weight loss. Total time was 30 min, greater than 50 % of time was spent on care coordination Case discussed with collaborating physician Dana Matthews who reviewed the assessment and plan. Chart, medications, labs, vital signs reviewed. Dictation was accomplished with the use of [employer] voice recognition software, prone to medical misidentifications and grammatical errors. This is unintentional and the practitioner does try to identify and correct these, but some could still be present. Please do not hesitate to contact practitioner for clarification. All questions answered to patients satisfaction. Patient verbalized understanding of diagnosis and treatments explained. To call sooner prior to next visit it any questions/concerns arise. 11/04/2024 ALEXANDER (obstructive sleep apnea) (ICD-10 - G47.33) #Obesity. 11/04/24: 197.4 pounds, BMI 32.1. She is doing well on Zepbound 5 mg. Unfortunately her insurance has changed this month and current plan does not cover Zepbound. She does think that they cover Wegovy. Will transition to Wegovy 0.25 mg dose. Discussed proper use and demonstrated pen autoinjector here in office. Reviewed risk benefits adverse effects of medication. Discussed we will titrate up her dose. Continue to work on consistent protein intake, hydration and regular exercise. Follow-up with me in 1 month sooner with any concerns. #ALEXANDER. Reports history of ALEXANDER. She was given a CPAP machine however was unable to tolerate it and has since returned it. #Hypertension. Has been well-controlled on verapamil. Followed by PCP. The patient will continue exercise regimen with an emphasis on improving/increasing steps to at least 6,000-10,000 steps per day. Increasing cardio and strength training exercises as tolerated to improve weight loss and work on building muscle mass. Patient is committed to smarter eating with calorie counting and mindful eating. Limiting processed foods and carbohydrates and increasing leafy greens and lean proteins as well as fruits into their diet. Patient was counseled on the importance of eating local, organic food when possible. Patient has been counseled regarding effects of GLP/GIP-1 agonists and other FDA approved weight loss medications with regards to a multifactorial approach of weight loss as mentioned above and that the medication alone will not be sufficient to meet patients goals. We discussed holistic medication approach with emphasis on lifestyle modification. Discussed obesity as it increases risk of diabetes, cardiovascular disease, and/or organ damage. We spent a lot of time discussing the relationship between food, exercise, sleep, mental health, and obesity. We discussed the importance of having SECAs done every visit and having accountability done during these visits. That the scale is done to monitor not only weight loss but the body composition during medication management and healthy lifestyle changes. We discussed that if the patient is unable at times to financially afford this scale that we would rather waive the fee and have the scale done than have the patient not have the scale obtained. Will follow up with the patient in 4 weeks time to monitor weight loss. Total time was 30 min, greater than 50 % of time was spent on care coordination Case discussed with collaborating physician Dana Matthews who reviewed the assessment and plan. Chart, medications, labs, vital signs reviewed. Dictation was accomplished with the use of [employer] voice recognition software, prone to medical misidentifications and grammatical errors. This is unintentional and the practitioner does try to identify and correct these, but some could still be present. Please do not hesitate to contact practitioner for clarification. All questions answered to patients satisfaction. Patient verbalized understanding of diagnosis and treatments explained. To call sooner prior to next visit it any questions/concerns arise. 10/07/2024 ALEXANDER (obstructive sleep apnea) (ICD-10 - G47.33) #Obesity. 10/07/24: 201.6 pounds, BMI 32.8. She is doing fantastic on Zepbound 5 mg. She is healing well from her surgery and will slowly increase exercise as dictated by her surgeon. Continue consistent protein intake and hydration. Will continue current regimen and follow-up with me again in 1 month. Follow-up sooner with any concerns. #ALEXANDER. Reports history of ALEXANDER. She was given a CPAP machine however was unable to tolerate it and has since returned it. Now on Zepbound. #Hypertension. Has been well-controlled on verapamil. Followed by PCP. The patient will continue exercise regimen with an emphasis on improving/increasing steps to at least 6,000-10,000 steps per day. Increasing cardio and strength training exercises as tolerated to improve weight loss and work on building muscle mass. Patient is committed to smarter eating with calorie counting and mindful eating. Limiting processed foods and carbohydrates and increasing leafy greens and lean proteins as well as fruits into their diet. Patient was counseled on the importance of eating local, organic food when possible. Patient has been counseled regarding effects of GLP/GIP-1 agonists and other FDA approved weight loss medications with regards to a multifactorial approach of weight loss as mentioned above and that the medication alone will not be sufficient to meet patients goals. We discussed holistic medication approach with emphasis on lifestyle modification. Discussed obesity as it increases risk of diabetes, cardiovascular disease, and/or organ damage. We spent a lot of time discussing the relationship between food, exercise, sleep, mental health, and obesity. We discussed the importance of having SECAs done every visit and having accountability done during these visits. That the scale is done to monitor not only weight loss but the body composition during medication management and healthy lifestyle changes. We discussed that if the patient is unable at times to financially afford this scale that we would rather waive the fee and have the scale done than have the patient not have the scale obtained. Will follow up with the patient in 4 weeks time to monitor weight loss. Total time was 30 min, greater than 50 % of time was spent on care coordination Case discussed with collaborating physician Dana Matthews who reviewed the assessment and plan. Chart, medications, labs, vital signs reviewed. Dictation was accomplished with the use of [employer] voice recognition software, prone to medical misidentifications and grammatical errors. This is unintentional and the practitioner does try to identify and correct these, but some could still be present. Please do not hesitate to contact practitioner for clarification. All questions answered to patients satisfaction. Patient verbalized understanding of diagnosis and treatments explained. To call sooner prior to next visit it any questions/concerns arise. 08/25/2024 ALEXANDER (obstructive sleep apnea) (ICD-10 - G47.33) #Obesity. 08/25/24: 212.1 pounds, BMI 34.5. She was approved Zepbound and has completed 4 weeks of 2.5 mg dose. She is down 6 pounds and has tolerated it well without side effects. Unfortunately she does have to have spine surgery with lumbar decompression next week. She did hold her dose this week and has been instructed that she may resume postop. Sample of Zepbound 2.5 mg given today advised to resume at 2.5 mg dose for 1 to 2 weeks postop and then can increase to 5 mg dose thereafter. We did discuss importance of bowel regimen postop as well. Follow-up with me in 6 weeks as she will be recovering from surgery. Follow-up sooner with any concerns. #ALEXANDER. Reports history of ALEXANDER. She was given a CPAP machine however was unable to tolerate it and has since returned it. Now on Zepbound. #Hypertension. Has been well-controlled on verapamil. Followed by PCP. #Anxiety. Stable on sertraline and followed by PCP. #Thyroid nodule. Reports history of thyroid nodule with benign biopsy. Denies any personal or family history of thyroid cancer. The patient will continue exercise regimen with an emphasis on improving/increasing steps to at least 6,000-10,000 steps per day. Increasing cardio and strength training exercises as tolerated to improve weight loss and work on building muscle mass. Patient is committed to smarter eating with calorie counting and mindful eating. Limiting processed foods and carbohydrates and increasing leafy greens and lean proteins as well as fruits into their diet. Patient was counseled on the importance of eating local, organic food when possible. Patient has been counseled regarding effects of GLP/GIP-1 agonists and other FDA approved weight loss medications with regards to a multifactorial approach of weight loss as mentioned above and that the medication alone will not be sufficient to meet patients goals. We discussed holistic medication approach with emphasis on lifestyle modification. Discussed obesity as it increases risk of diabetes, cardiovascular disease, and/or organ damage. We spent a lot of time discussing the relationship between food, exercise, sleep, mental health, and obesity. We discussed the importance of having SECAs done every visit and having accountability done during these visits. That the scale is done to monitor not only weight loss but the body composition during medication management and healthy lifestyle changes. We discussed that if the patient is unable at times to financially afford this scale that we would rather waive the fee and have the scale done than have the patient not have the scale obtained. Will follow up with the patient in 4 weeks time to monitor weight loss. Total time was 30 min, greater than 50 % of time was spent on care coordination Case discussed with collaborating physician Dana Matthews who reviewed the assessment and plan. Chart, medications, labs, vital signs reviewed. Dictation was accomplished with the use of [employer] voice recognition software, prone to medical misidentifications and grammatical errors. This is unintentional and the practitioner does try to identify and correct these, but some could still be present. Please do not hesitate to contact practitioner for clarification. All questions answered to patients satisfaction. Patient verbalized understanding of diagnosis and treatments explained. To call sooner prior to next visit it any questions/concerns arise. 07/21/2024 Primary hypertension (ICD-10 - I10) #Obesity. 07/21/24: 218.4 pounds, BMI 35.5. Welcomed back after long hiatus since her initial consult. Discussed medication options in detail. Most interested in Zepbound. Will prescribe today and start PA process. Discussed we will follow-up with patient pending PA determination. We discussed importance of keeping follow-up visits. Also discussed importance of lifestyle modifications. Continue to work towards increased protein intake with a goal of 80 to 100 g a day, increase water intake and regular exercise. She is awaiting an MRI of her back due to persistent sciatic pain which has limited her exercise. Is to add probiotics daily and B complex. Reviewed risk benefits adverse effects of Zepbound in detail with patient. Demonstrated proper use of pen autoinjector. Will follow-up with me in 1 month sooner with any concerns. #ALEXANDER. Reports history of ALEXANDER. She was given a CPAP machine however was unable to tolerate it and has since returned it. She would benefit from Zepbound. #Hypertension. Has been well-controlled on verapamil. Followed by PCP. #Anxiety. Stable on sertraline and followed by PCP. #Thyroid nodule. Reports history of thyroid nodule with benign biopsy. Denies any personal or family history of thyroid cancer. The patient will continue exercise regimen with an emphasis on improving/increasing steps to at least 6,000-10,000 steps per day. Increasing cardio and strength training exercises as tolerated to improve weight loss and work on building muscle mass. Patient is committed to smarter eating with calorie counting and mindful eating. Limiting processed foods and carbohydrates and increasing leafy greens and lean proteins as well as fruits into their diet. Patient was counseled on the importance of eating local, organic food when possible. Patient has been counseled regarding effects of GLP/GIP-1 agonists and other FDA approved weight loss medications with regards to a multifactorial approach of weight loss as mentioned above and that the medication alone will not be sufficient to meet patients goals. We discussed holistic medication approach with emphasis on lifestyle modification. Discussed obesity as it increases risk of diabetes, cardiovascular disease, and/or organ damage. We spent a lot of time discussing the relationship between food, exercise, sleep, mental health, and obesity. We discussed the importance of having SECAs done every visit and having accountability done during these visits. That the scale is done to monitor not only weight loss but the body composition during medication management and healthy lifestyle changes. We discussed that if the patient is unable at times to financially afford this scale that we would rather waive the fee and have the scale done than have the patient not have the scale obtained. Will follow up with the patient in 4 weeks time to monitor weight loss. Total time was 45 min, greater than 50 % of time was spent on care coordination Case discussed with collaborating physician Dana Matthews who reviewed the assessment and plan. Chart, medications, labs, vital signs reviewed. Dictation was accomplished with the use of [employer] voice recognition software, prone to medical misidentifications and grammatical errors. This is unintentional and the practitioner does try to identify and correct these, but some could still be present. Please do not hesitate to contact practitioner for clarification. All questions answered to patients satisfaction. Patient verbalized understanding of diagnosis and treatments explained. To call sooner prior to next visit it any questions/concerns arise. 08/25/2024 Primary hypertension (ICD-10 - I10) #Obesity. 08/25/24: 212.1 pounds, BMI 34.5. She was approved Zepbound and has completed 4 weeks of 2.5 mg dose. She is down 6 pounds and has tolerated it well without side effects. Unfortunately she does have to have spine surgery with lumbar decompression next week. She did hold her dose this week and has been instructed that she may resume postop. Sample of Zepbound 2.5 mg given today advised to resume at 2.5 mg dose for 1 to 2 weeks postop and then can increase to 5 mg dose thereafter. We did discuss importance of bowel regimen postop as well. Follow-up with me in 6 weeks as she will be recovering from surgery. Follow-up sooner with any concerns. #ALEXANDER. Reports history of ALEXANDER. She was given a CPAP machine however was unable to tolerate it and has since returned it. Now on Zepbound. #Hypertension. Has been well-controlled on verapamil. Followed by PCP. #Anxiety. Stable on sertraline and followed by PCP. #Thyroid nodule. Reports history of thyroid nodule with benign biopsy. Denies any personal or family history of thyroid cancer. The patient will continue exercise regimen with an emphasis on improving/increasing steps to at least 6,000-10,000 steps per day. Increasing cardio and strength training exercises as tolerated to improve weight loss and work on building muscle mass. Patient is committed to smarter eating with calorie counting and mindful eating. Limiting processed foods and carbohydrates and increasing leafy greens and lean proteins as well as fruits into their diet. Patient was counseled on the importance of eating local, organic food when possible. Patient has been counseled regarding effects of GLP/GIP-1 agonists and other FDA approved weight loss medications with regards to a multifactorial approach of weight loss as mentioned above and that the medication alone will not be sufficient to meet patients goals. We discussed holistic medication approach with emphasis on lifestyle modification. Discussed obesity as it increases risk of diabetes, cardiovascular disease, and/or organ damage. We spent a lot of time discussing the relationship between food, exercise, sleep, mental health, and obesity. We discussed the importance of having SECAs done every visit and having accountability done during these visits. That the scale is done to monitor not only weight loss but the body composition during medication management and healthy lifestyle changes. We discussed that if the patient is unable at times to financially afford this scale that we would rather waive the fee and have the scale done than have the patient not have the scale obtained. Will follow up with the patient in 4 weeks time to monitor weight loss. Total time was 30 min, greater than 50 % of time was spent on care coordination Case discussed with collaborating physician Dana Matthews who reviewed the assessment and plan. Chart, medications, labs, vital signs reviewed. Dictation was accomplished with the use of [employer] voice recognition software, prone to medical misidentifications and grammatical errors. This is unintentional and the practitioner does try to identify and correct these, but some could still be present. Please do not hesitate to contact practitioner for clarification. All questions answered to patients satisfaction. Patient verbalized understanding of diagnosis and treatments explained. To call sooner prior to next visit it any questions/concerns arise. 10/07/2024 Primary hypertension (ICD-10 - I10) #Obesity. 10/07/24: 201.6 pounds, BMI 32.8. She is doing fantastic on Zepbound 5 mg. She is healing well from her surgery and will slowly increase exercise as dictated by her surgeon. Continue consistent protein intake and hydration. Will continue current regimen and follow-up with me again in 1 month. Follow-up sooner with any concerns. #ALEXANDER. Reports history of ALEXANDER. She was given a CPAP machine however was unable to tolerate it and has since returned it. Now on Zepbound. #Hypertension. Has been well-controlled on verapamil. Followed by PCP. The patient will continue exercise regimen with an emphasis on improving/increasing steps to at least 6,000-10,000 steps per day. Increasing cardio and strength training exercises as tolerated to improve weight loss and work on building muscle mass. Patient is committed to smarter eating with calorie counting and mindful eating. Limiting processed foods and carbohydrates and increasing leafy greens and lean proteins as well as fruits into their diet. Patient was counseled on the importance of eating local, organic food when possible. Patient has been counseled regarding effects of GLP/GIP-1 agonists and other FDA approved weight loss medications with regards to a multifactorial approach of weight loss as mentioned above and that the medication alone will not be sufficient to meet patients goals. We discussed holistic medication approach with emphasis on lifestyle modification. Discussed obesity as it increases risk of diabetes, cardiovascular disease, and/or organ damage. We spent a lot of time discussing the relationship between food, exercise, sleep, mental health, and obesity. We discussed the importance of having SECAs done every visit and having accountability done during these visits. That the scale is done to monitor not only weight loss but the body composition during medication management and healthy lifestyle changes. We discussed that if the patient is unable at times to financially afford this scale that we would rather waive the fee and have the scale done than have the patient not have the scale obtained. Will follow up with the patient in 4 weeks time to monitor weight loss. Total time was 30 min, greater than 50 % of time was spent on care coordination Case discussed with collaborating physician Dana Matthews who reviewed the assessment and plan. Chart, medications, labs, vital signs reviewed. Dictation was accomplished with the use of [employer] voice recognition software, prone to medical misidentifications and grammatical errors. This is unintentional and the practitioner does try to identify and correct these, but some could still be present. Please do not hesitate to contact practitioner for clarification. All questions answered to patients satisfaction. Patient verbalized understanding of diagnosis and treatments explained. To call sooner prior to next visit it any questions/concerns arise. 11/04/2024 Primary hypertension (ICD-10 - I10) #Obesity. 11/04/24: 197.4 pounds, BMI 32.1. She is doing well on Zepbound 5 mg. Unfortunately her insurance has changed this month and current plan does not cover Zepbound. She does think that they cover Wegovy. Will transition to Wegovy 0.25 mg dose. Discussed proper use and demonstrated pen autoinjector here in office. Reviewed risk benefits adverse effects of medication. Discussed we will titrate up her dose. Continue to work on consistent protein intake, hydration and regular exercise. Follow-up with me in 1 month sooner with any concerns. #ALEXANDER. Reports history of ALEXANDER. She was given a CPAP machine however was unable to tolerate it and has since returned it. #Hypertension. Has been well-controlled on verapamil. Followed by PCP. The patient will continue exercise regimen with an emphasis on improving/increasing steps to at least 6,000-10,000 steps per day. Increasing cardio and strength training exercises as tolerated to improve weight loss and work on building muscle mass. Patient is committed to smarter eating with calorie counting and mindful eating. Limiting processed foods and carbohydrates and increasing leafy greens and lean proteins as well as fruits into their diet. Patient was counseled on the importance of eating local, organic food when possible. Patient has been counseled regarding effects of GLP/GIP-1 agonists and other FDA approved weight loss medications with regards to a multifactorial approach of weight loss as mentioned above and that the medication alone will not be sufficient to meet patients goals. We discussed holistic medication approach with emphasis on lifestyle modification. Discussed obesity as it increases risk of diabetes, cardiovascular disease, and/or organ damage. We spent a lot of time discussing the relationship between food, exercise, sleep, mental health, and obesity. We discussed the importance of having SECAs done every visit and having accountability done during these visits. That the scale is done to monitor not only weight loss but the body composition during medication management and healthy lifestyle changes. We discussed that if the patient is unable at times to financially afford this scale that we would rather waive the fee and have the scale done than have the patient not have the scale obtained. Will follow up with the patient in 4 weeks time to monitor weight loss. Total time was 30 min, greater than 50 % of time was spent on care coordination Case discussed with collaborating physician Dana Matthews who reviewed the assessment and plan. Chart, medications, labs, vital signs reviewed. Dictation was accomplished with the use of [employer] voice recognition software, prone to medical misidentifications and grammatical errors. This is unintentional and the practitioner does try to identify and correct these, but some could still be present. Please do not hesitate to contact practitioner for clarification. All questions answered to patients satisfaction. Patient verbalized understanding of diagnosis and treatments explained. To call sooner prior to next visit it any questions/concerns arise. 01/25/2025 Primary hypertension (ICD-10 - I10) #Obesity. 01/25/25: 192.9 pounds, BMI 31.4. She is doing well on Wegovy 0.5 mg weekly. Will plan to increase to 1 mg dose on next refill. Continue with consistent exercise, hydration and regular protein intake. Follow-up with me again in 1 month sooner with any concerns. #ALEXANDER. Reports history of ALEXANDER. She was given a CPAP machine however was unable to tolerate it and has since returned it. Working on weight reduction. #Hypertension. Has been well-controlled on verapamil. Followed by PCP. The patient will continue exercise regimen with an emphasis on improving/increasing steps to at least 6,000-10,000 steps per day. Increasing cardio and strength training exercises as tolerated to improve weight loss and work on building muscle mass. Patient is committed to smarter eating with calorie counting and mindful eating. Limiting processed foods and carbohydrates and increasing leafy greens and lean proteins as well as fruits into their diet. Patient was counseled on the importance of eating local, organic food when possible. Patient has been counseled regarding effects of GLP/GIP-1 agonists and other FDA approved weight loss medications with regards to a multifactorial approach of weight loss as mentioned above and that the medication alone will not be sufficient to meet patients goals. We discussed holistic medication approach with emphasis on lifestyle modification. Discussed obesity as it increases risk of diabetes, cardiovascular disease, and/or organ damage. We spent a lot of time discussing the relationship between food, exercise, sleep, mental health, and obesity. We discussed the importance of having SECAs done every visit and having accountability done during these visits. That the scale is done to monitor not only weight loss but the body composition during medication management and healthy lifestyle changes. We discussed that if the patient is unable at times to financially afford this scale that we would rather waive the fee and have the scale done than have the patient not have the scale obtained. Will follow up with the patient in 4 weeks time to monitor weight loss. Total time was 30 min, greater than 50 % of time was spent on care coordination Case discussed with collaborating physician Dana Matthews who reviewed the assessment and plan. Chart, medications, labs, vital signs reviewed. Dictation was accomplished with the use of [employer] voice recognition software, prone to medical misidentifications and grammatical errors. This is unintentional and the practitioner does try to identify and correct these, but some could still be present. Please do not hesitate to contact practitioner for clarification. All questions answered to patients satisfaction. Patient verbalized understanding of diagnosis and treatments explained. To call sooner prior to next visit it any questions/concerns arise. 01/25/2025 Weight loss counseling, encounter for (ICD-10 - Z71.3) #Obesity. 01/25/25: 192.9 pounds, BMI 31.4. She is doing well on Wegovy 0.5 mg weekly. Will plan to increase to 1 mg dose on next refill. Continue with consistent exercise, hydration and regular protein intake. Follow-up with me again in 1 month sooner with any concerns. #ALEXANDER. Reports history of ALEXANDER. She was given a CPAP machine however was unable to tolerate it and has since returned it. Working on weight reduction. #Hypertension. Has been well-controlled on verapamil. Followed by PCP. The patient will continue exercise regimen with an emphasis on improving/increasing steps to at least 6,000-10,000 steps per day. Increasing cardio and strength training exercises as tolerated to improve weight loss and work on building muscle mass. Patient is committed to smarter eating with calorie counting and mindful eating. Limiting processed foods and carbohydrates and increasing leafy greens and lean proteins as well as fruits into their diet. Patient was counseled on the importance of eating local, organic food when possible. Patient has been counseled regarding effects of GLP/GIP-1 agonists and other FDA approved weight loss medications with regards to a multifactorial approach of weight loss as mentioned above and that the medication alone will not be sufficient to meet patients goals. We discussed holistic medication approach with emphasis on lifestyle modification. Discussed obesity as it increases risk of diabetes, cardiovascular disease, and/or organ damage. We spent a lot of time discussing the relationship between food, exercise, sleep, mental health, and obesity. We discussed the importance of having SECAs done every visit and having accountability done during these visits. That the scale is done to monitor not only weight loss but the body composition during medication management and healthy lifestyle changes. We discussed that if the patient is unable at times to financially afford this scale that we would rather waive the fee and have the scale done than have the patient not have the scale obtained. Will follow up with the patient in 4 weeks time to monitor weight loss. Total time was 30 min, greater than 50 % of time was spent on care coordination Case discussed with collaborating physician Dana Matthews who reviewed the assessment and plan. Chart, medications, labs, vital signs reviewed. Dictation was accomplished with the use of [employer] voice recognition software, prone to medical misidentifications and grammatical errors. This is unintentional and the practitioner does try to identify and correct these, but some could still be present. Please do not hesitate to contact practitioner for clarification. All questions answered to patients satisfaction. Patient verbalized understanding of diagnosis and treatments explained. To call sooner prior to next visit it any questions/concerns arise. 11/04/2024 Weight loss counseling, encounter for (ICD-10 - Z71.3) #Obesity. 11/04/24: 197.4 pounds, BMI 32.1. She is doing well on Zepbound 5 mg. Unfortunately her insurance has changed this month and current plan does not cover Zepbound. She does think that they cover Wegovy. Will transition to Wegovy 0.25 mg dose. Discussed proper use and demonstrated pen autoinjector here in office. Reviewed risk benefits adverse effects of medication. Discussed we will titrate up her dose. Continue to work on consistent protein intake, hydration and regular exercise. Follow-up with me in 1 month sooner with any concerns. #ALEXANDER. Reports history of ALEXANDER. She was given a CPAP machine however was unable to tolerate it and has since returned it. #Hypertension. Has been well-controlled on verapamil. Followed by PCP. The patient will continue exercise regimen with an emphasis on improving/increasing steps to at least 6,000-10,000 steps per day. Increasing cardio and strength training exercises as tolerated to improve weight loss and work on building muscle mass. Patient is committed to smarter eating with calorie counting and mindful eating. Limiting processed foods and carbohydrates and increasing leafy greens and lean proteins as well as fruits into their diet. Patient was counseled on the importance of eating local, organic food when possible. Patient has been counseled regarding effects of GLP/GIP-1 agonists and other FDA approved weight loss medications with regards to a multifactorial approach of weight loss as mentioned above and that the medication alone will not be sufficient to meet patients goals. We discussed holistic medication approach with emphasis on lifestyle modification. Discussed obesity as it increases risk of diabetes, cardiovascular disease, and/or organ damage. We spent a lot of time discussing the relationship between food, exercise, sleep, mental health, and obesity. We discussed the importance of having SECAs done every visit and having accountability done during these visits. That the scale is done to monitor not only weight loss but the body composition during medication management and healthy lifestyle changes. We discussed that if the patient is unable at times to financially afford this scale that we would rather waive the fee and have the scale done than have the patient not have the scale obtained. Will follow up with the patient in 4 weeks time to monitor weight loss. Total time was 30 min, greater than 50 % of time was spent on care coordination Case discussed with collaborating physician Dana Matthews who reviewed the assessment and plan. Chart, medications, labs, vital signs reviewed. Dictation was accomplished with the use of [employer] voice recognition software, prone to medical misidentifications and grammatical errors. This is unintentional and the practitioner does try to identify and correct these, but some could still be present. Please do not hesitate to contact practitioner for clarification. All questions answered to patients satisfaction. Patient verbalized understanding of diagnosis and treatments explained. To call sooner prior to next visit it any questions/concerns arise. 10/07/2024 Weight loss counseling, encounter for (ICD-10 - Z71.3) #Obesity. 10/07/24: 201.6 pounds, BMI 32.8. She is doing fantastic on Zepbound 5 mg. She is healing well from her surgery and will slowly increase exercise as dictated by her surgeon. Continue consistent protein intake and hydration. Will continue current regimen and follow-up with me again in 1 month. Follow-up sooner with any concerns. #ALEXANDER. Reports history of ALEXANDER. She was given a CPAP machine however was unable to tolerate it and has since returned it. Now on Zepbound. #Hypertension. Has been well-controlled on verapamil. Followed by PCP. The patient will continue exercise regimen with an emphasis on improving/increasing steps to at least 6,000-10,000 steps per day. Increasing cardio and strength training exercises as tolerated to improve weight loss and work on building muscle mass. Patient is committed to smarter eating with calorie counting and mindful eating. Limiting processed foods and carbohydrates and increasing leafy greens and lean proteins as well as fruits into their diet. Patient was counseled on the importance of eating local, organic food when possible. Patient has been counseled regarding effects of GLP/GIP-1 agonists and other FDA approved weight loss medications with regards to a multifactorial approach of weight loss as mentioned above and that the medication alone will not be sufficient to meet patients goals. We discussed holistic medication approach with emphasis on lifestyle modification. Discussed obesity as it increases risk of diabetes, cardiovascular disease, and/or organ damage. We spent a lot of time discussing the relationship between food, exercise, sleep, mental health, and obesity. We discussed the importance of having SECAs done every visit and having accountability done during these visits. That the scale is done to monitor not only weight loss but the body composition during medication management and healthy lifestyle changes. We discussed that if the patient is unable at times to financially afford this scale that we would rather waive the fee and have the scale done than have the patient not have the scale obtained. Will follow up with the patient in 4 weeks time to monitor weight loss. Total time was 30 min, greater than 50 % of time was spent on care coordination Case discussed with collaborating physician Dana Matthews who reviewed the assessment and plan. Chart, medications, labs, vital signs reviewed. Dictation was accomplished with the use of [employer] voice recognition software, prone to medical misidentifications and grammatical errors. This is unintentional and the practitioner does try to identify and correct these, but some could still be present. Please do not hesitate to contact practitioner for clarification. All questions answered to patients satisfaction. Patient verbalized understanding of diagnosis and treatments explained. To call sooner prior to next visit it any questions/concerns arise. 08/25/2024 Anxiety (ICD-10 - F41.9) #Obesity. 08/25/24: 212.1 pounds, BMI 34.5. She was approved Zepbound and has completed 4 weeks of 2.5 mg dose. She is down 6 pounds and has tolerated it well without side effects. Unfortunately she does have to have spine surgery with lumbar decompression next week. She did hold her dose this week and has been instructed that she may resume postop. Sample of Zepbound 2.5 mg given today advised to resume at 2.5 mg dose for 1 to 2 weeks postop and then can increase to 5 mg dose thereafter. We did discuss importance of bowel regimen postop as well. Follow-up with me in 6 weeks as she will be recovering from surgery. Follow-up sooner with any concerns. #ALEXANDER. Reports history of ALEXANDER. She was given a CPAP machine however was unable to tolerate it and has since returned it. Now on Zepbound. #Hypertension. Has been well-controlled on verapamil. Followed by PCP. #Anxiety. Stable on sertraline and followed by PCP. #Thyroid nodule. Reports history of thyroid nodule with benign biopsy. Denies any personal or family history of thyroid cancer. The patient will continue exercise regimen with an emphasis on improving/increasing steps to at least 6,000-10,000 steps per day. Increasing cardio and strength training exercises as tolerated to improve weight loss and work on building muscle mass. Patient is committed to smarter eating with calorie counting and mindful eating. Limiting processed foods and carbohydrates and increasing leafy greens and lean proteins as well as fruits into their diet. Patient was counseled on the importance of eating local, organic food when possible. Patient has been counseled regarding effects of GLP/GIP-1 agonists and other FDA approved weight loss medications with regards to a multifactorial approach of weight loss as mentioned above and that the medication alone will not be sufficient to meet patients goals. We discussed holistic medication approach with emphasis on lifestyle modification. Discussed obesity as it increases risk of diabetes, cardiovascular disease, and/or organ damage. We spent a lot of time discussing the relationship between food, exercise, sleep, mental health, and obesity. We discussed the importance of having SECAs done every visit and having accountability done during these visits. That the scale is done to monitor not only weight loss but the body composition during medication management and healthy lifestyle changes. We discussed that if the patient is unable at times to financially afford this scale that we would rather waive the fee and have the scale done than have the patient not have the scale obtained. Will follow up with the patient in 4 weeks time to monitor weight loss. Total time was 30 min, greater than 50 % of time was spent on care coordination Case discussed with collaborating physician Dana Matthews who reviewed the assessment and plan. Chart, medications, labs, vital signs reviewed. Dictation was accomplished with the use of [employer] voice recognition software, prone to medical misidentifications and grammatical errors. This is unintentional and the practitioner does try to identify and correct these, but some could still be present. Please do not hesitate to contact practitioner for clarification. All questions answered to patients satisfaction. Patient verbalized understanding of diagnosis and treatments explained. To call sooner prior to next visit it any questions/concerns arise. 07/21/2024 Anxiety (ICD-10 - F41.9) #Obesity. 07/21/24: 218.4 pounds, BMI 35.5. Welcomed back after long hiatus since her initial consult. Discussed medication options in detail. Most interested in Zepbound. Will prescribe today and start PA process. Discussed we will follow-up with patient pending PA determination. We discussed importance of keeping follow-up visits. Also discussed importance of lifestyle modifications. Continue to work towards increased protein intake with a goal of 80 to 100 g a day, increase water intake and regular exercise. She is awaiting an MRI of her back due to persistent sciatic pain which has limited her exercise. Is to add probiotics daily and B complex. Reviewed risk benefits adverse effects of Zepbound in detail with patient. Demonstrated proper use of pen autoinjector. Will follow-up with me in 1 month sooner with any concerns. #ALEXANDER. Reports history of ALEXANDER. She was given a CPAP machine however was unable to tolerate it and has since returned it. She would benefit from Zepbound. #Hypertension. Has been well-controlled on verapamil. Followed by PCP. #Anxiety. Stable on sertraline and followed by PCP. #Thyroid nodule. Reports history of thyroid nodule with benign biopsy. Denies any personal or family history of thyroid cancer. The patient will continue exercise regimen with an emphasis on improving/increasing steps to at least 6,000-10,000 steps per day. Increasing cardio and strength training exercises as tolerated to improve weight loss and work on building muscle mass. Patient is committed to smarter eating with calorie counting and mindful eating. Limiting processed foods and carbohydrates and increasing leafy greens and lean proteins as well as fruits into their diet. Patient was counseled on the importance of eating local, organic food when possible. Patient has been counseled regarding effects of GLP/GIP-1 agonists and other FDA approved weight loss medications with regards to a multifactorial approach of weight loss as mentioned above and that the medication alone will not be sufficient to meet patients goals. We discussed holistic medication approach with emphasis on lifestyle modification. Discussed obesity as it increases risk of diabetes, cardiovascular disease, and/or organ damage. We spent a lot of time discussing the relationship between food, exercise, sleep, mental health, and obesity. We discussed the importance of having SECAs done every visit and having accountability done during these visits. That the scale is done to monitor not only weight loss but the body composition during medication management and healthy lifestyle changes. We discussed that if the patient is unable at times to financially afford this scale that we would rather waive the fee and have the scale done than have the patient not have the scale obtained. Will follow up with the patient in 4 weeks time to monitor weight loss. Total time was 45 min, greater than 50 % of time was spent on care coordination Case discussed with collaborating physician Dana Matthews who reviewed the assessment and plan. Chart, medications, labs, vital signs reviewed. Dictation was accomplished with the use of [employer] voice recognition software, prone to medical misidentifications and grammatical errors. This is unintentional and the practitioner does try to identify and correct these, but some could still be present. Please do not hesitate to contact practitioner for clarification. All questions answered to patients satisfaction. Patient verbalized understanding of diagnosis and treatments explained. To call sooner prior to next visit it any questions/concerns arise. 07/21/2024 Thyroid nodule (ICD-10 - E04.1) #Obesity. 07/21/24: 218.4 pounds, BMI 35.5. Welcomed back after long hiatus since her initial consult. Discussed medication options in detail. Most interested in Zepbound. Will prescribe today and start PA process. Discussed we will follow-up with patient pending PA determination. We discussed importance of keeping follow-up visits. Also discussed importance of lifestyle modifications. Continue to work towards increased protein intake with a goal of 80 to 100 g a day, increase water intake and regular exercise. She is awaiting an MRI of her back due to persistent sciatic pain which has limited her exercise. Is to add probiotics daily and B complex. Reviewed risk benefits adverse effects of Zepbound in detail with patient. Demonstrated proper use of pen autoinjector. Will follow-up with me in 1 month sooner with any concerns. #ALEXANDER. Reports history of ALEXANDER. She was given a CPAP machine however was unable to tolerate it and has since returned it. She would benefit from Zepbound. #Hypertension. Has been well-controlled on verapamil. Followed by PCP. #Anxiety. Stable on sertraline and followed by PCP. #Thyroid nodule. Reports history of thyroid nodule with benign biopsy. Denies any personal or family history of thyroid cancer. The patient will continue exercise regimen with an emphasis on improving/increasing steps to at least 6,000-10,000 steps per day. Increasing cardio and strength training exercises as tolerated to improve weight loss and work on building muscle mass. Patient is committed to smarter eating with calorie counting and mindful eating. Limiting processed foods and carbohydrates and increasing leafy greens and lean proteins as well as fruits into their diet. Patient was counseled on the importance of eating local, organic food when possible. Patient has been counseled regarding effects of GLP/GIP-1 agonists and other FDA approved weight loss medications with regards to a multifactorial approach of weight loss as mentioned above and that the medication alone will not be sufficient to meet patients goals. We discussed holistic medication approach with emphasis on lifestyle modification. Discussed obesity as it increases risk of diabetes, cardiovascular disease, and/or organ damage. We spent a lot of time discussing the relationship between food, exercise, sleep, mental health, and obesity. We discussed the importance of having SECAs done every visit and having accountability done during these visits. That the scale is done to monitor not only weight loss but the body composition during medication management and healthy lifestyle changes. We discussed that if the patient is unable at times to financially afford this scale that we would rather waive the fee and have the scale done than have the patient not have the scale obtained. Will follow up with the patient in 4 weeks time to monitor weight loss. Total time was 45 min, greater than 50 % of time was spent on care coordination Case discussed with collaborating physician Dana Matthews who reviewed the assessment and plan. Chart, medications, labs, vital signs reviewed. Dictation was accomplished with the use of [employer] voice recognition software, prone to medical misidentifications and grammatical errors. This is unintentional and the practitioner does try to identify and correct these, but some could still be present. Please do not hesitate to contact practitioner for clarification. All questions answered to patients satisfaction. Patient verbalized understanding of diagnosis and treatments explained. To call sooner prior to next visit it any questions/concerns arise. 08/25/2024 Thyroid nodule (ICD-10 - E04.1) #Obesity. 08/25/24: 212.1 pounds, BMI 34.5. She was approved Zepbound and has completed 4 weeks of 2.5 mg dose. She is down 6 pounds and has tolerated it well without side effects. Unfortunately she does have to have spine surgery with lumbar decompression next week. She did hold her dose this week and has been instructed that she may resume postop. Sample of Zepbound 2.5 mg given today advised to resume at 2.5 mg dose for 1 to 2 weeks postop and then can increase to 5 mg dose thereafter. We did discuss importance of bowel regimen postop as well. Follow-up with me in 6 weeks as she will be recovering from surgery. Follow-up sooner with any concerns. #ALEXANDER. Reports history of ALEXANDER. She was given a CPAP machine however was unable to tolerate it and has since returned it. Now on Zepbound. #Hypertension. Has been well-controlled on verapamil. Followed by PCP. #Anxiety. Stable on sertraline and followed by PCP. #Thyroid nodule. Reports history of thyroid nodule with benign biopsy. Denies any personal or family history of thyroid cancer. The patient will continue exercise regimen with an emphasis on improving/increasing steps to at least 6,000-10,000 steps per day. Increasing cardio and strength training exercises as tolerated to improve weight loss and work on building muscle mass. Patient is committed to smarter eating with calorie counting and mindful eating. Limiting processed foods and carbohydrates and increasing leafy greens and lean proteins as well as fruits into their diet. Patient was counseled on the importance of eating local, organic food when possible. Patient has been counseled regarding effects of GLP/GIP-1 agonists and other FDA approved weight loss medications with regards to a multifactorial approach of weight loss as mentioned above and that the medication alone will not be sufficient to meet patients goals. We discussed holistic medication approach with emphasis on lifestyle modification. Discussed obesity as it increases risk of diabetes, cardiovascular disease, and/or organ damage. We spent a lot of time discussing the relationship between food, exercise, sleep, mental health, and obesity. We discussed the importance of having SECAs done every visit and having accountability done during these visits. That the scale is done to monitor not only weight loss but the body composition during medication management and healthy lifestyle changes. We discussed that if the patient is unable at times to financially afford this scale that we would rather waive the fee and have the scale done than have the patient not have the scale obtained. Will follow up with the patient in 4 weeks time to monitor weight loss. Total time was 30 min, greater than 50 % of time was spent on care coordination Case discussed with collaborating physician Dana Matthews who reviewed the assessment and plan. Chart, medications, labs, vital signs reviewed. Dictation was accomplished with the use of [employer] voice recognition software, prone to medical misidentifications and grammatical errors. This is unintentional and the practitioner does try to identify and correct these, but some could still be present. Please do not hesitate to contact practitioner for clarification. All questions answered to patients satisfaction. Patient verbalized understanding of diagnosis and treatments explained. To call sooner prior to next visit it any questions/concerns arise. 08/25/2024 Weight loss counseling, encounter for (ICD-10 - Z71.3) #Obesity. 08/25/24: 212.1 pounds, BMI 34.5. She was approved Zepbound and has completed 4 weeks of 2.5 mg dose. She is down 6 pounds and has tolerated it well without side effects. Unfortunately she does have to have spine surgery with lumbar decompression next week. She did hold her dose this week and has been instructed that she may resume postop. Sample of Zepbound 2.5 mg given today advised to resume at 2.5 mg dose for 1 to 2 weeks postop and then can increase to 5 mg dose thereafter. We did discuss importance of bowel regimen postop as well. Follow-up with me in 6 weeks as she will be recovering from surgery. Follow-up sooner with any concerns. #ALEXANDER. Reports history of ALEXANDER. She was given a CPAP machine however was unable to tolerate it and has since returned it. Now on Zepbound. #Hypertension. Has been well-controlled on verapamil. Followed by PCP. #Anxiety. Stable on sertraline and followed by PCP. #Thyroid nodule. Reports history of thyroid nodule with benign biopsy. Denies any personal or family history of thyroid cancer. The patient will continue exercise regimen with an emphasis on improving/increasing steps to at least 6,000-10,000 steps per day. Increasing cardio and strength training exercises as tolerated to improve weight loss and work on building muscle mass. Patient is committed to smarter eating with calorie counting and mindful eating. Limiting processed foods and carbohydrates and increasing leafy greens and lean proteins as well as fruits into their diet. Patient was counseled on the importance of eating local, organic food when possible. Patient has been counseled regarding effects of GLP/GIP-1 agonists and other FDA approved weight loss medications with regards to a multifactorial approach of weight loss as mentioned above and that the medication alone will not be sufficient to meet patients goals. We discussed holistic medication approach with emphasis on lifestyle modification. Discussed obesity as it increases risk of diabetes, cardiovascular disease, and/or organ damage. We spent a lot of time discussing the relationship between food, exercise, sleep, mental health, and obesity. We discussed the importance of having SECAs done every visit and having accountability done during these visits. That the scale is done to monitor not only weight loss but the body composition during medication management and healthy lifestyle changes. We discussed that if the patient is unable at times to financially afford this scale that we would rather waive the fee and have the scale done than have the patient not have the scale obtained. Will follow up with the patient in 4 weeks time to monitor weight loss. Total time was 30 min, greater than 50 % of time was spent on care coordination Case discussed with collaborating physician Dana Matthews who reviewed the assessment and plan. Chart, medications, labs, vital signs reviewed. Dictation was accomplished with the use of [employer] voice recognition software, prone to medical misidentifications and grammatical errors. This is unintentional and the practitioner does try to identify and correct these, but some could still be present. Please do not hesitate to contact practitioner for clarification. All questions answered to patients satisfaction. Patient verbalized understanding of diagnosis and treatments explained. To call sooner prior to next visit it any questions/concerns arise. 07/21/2024 Weight loss counseling, encounter for (ICD-10 - Z71.3) #Obesity. 07/21/24: 218.4 pounds, BMI 35.5. Welcomed back after long hiatus since her initial consult. Discussed medication options in detail. Most interested in Zepbound. Will prescribe today and start PA process. Discussed we will follow-up with patient pending PA determination. We discussed importance of keeping follow-up visits. Also discussed importance of lifestyle modifications. Continue to work towards increased protein intake with a goal of 80 to 100 g a day, increase water intake and regular exercise. She is awaiting an MRI of her back due to persistent sciatic pain which has limited her exercise. Is to add probiotics daily and B complex. Reviewed risk benefits adverse effects of Zepbound in detail with patient. Demonstrated proper use of pen autoinjector. Will follow-up with me in 1 month sooner with any concerns. #ALEXANDER. Reports history of ALEXANDER. She was given a CPAP machine however was unable to tolerate it and has since returned it. She would benefit from Zepbound. #Hypertension. Has been well-controlled on verapamil. Followed by PCP. #Anxiety. Stable on sertraline and followed by PCP. #Thyroid nodule. Reports history of thyroid nodule with benign biopsy. Denies any personal or family history of thyroid cancer. The patient will continue exercise regimen with an emphasis on improving/increasing steps to at least 6,000-10,000 steps per day. Increasing cardio and strength training exercises as tolerated to improve weight loss and work on building muscle mass. Patient is committed to smarter eating with calorie counting and mindful eating. Limiting processed foods and carbohydrates and increasing leafy greens and lean proteins as well as fruits into their diet. Patient was counseled on the importance of eating local, organic food when possible. Patient has been counseled regarding effects of GLP/GIP-1 agonists and other FDA approved weight loss medications with regards to a multifactorial approach of weight loss as mentioned above and that the medication alone will not be sufficient to meet patients goals. We discussed holistic medication approach with emphasis on lifestyle modification. Discussed obesity as it increases risk of diabetes, cardiovascular disease, and/or organ damage. We spent a lot of time discussing the relationship between food, exercise, sleep, mental health, and obesity. We discussed the importance of having SECAs done every visit and having accountability done during these visits. That the scale is done to monitor not only weight loss but the body composition during medication management and healthy lifestyle changes. We discussed that if the patient is unable at times to financially afford this scale that we would rather waive the fee and have the scale done than have the patient not have the scale obtained. Will follow up with the patient in 4 weeks time to monitor weight loss. Total time was 45 min, greater than 50 % of time was spent on care coordination Case discussed with collaborating physician Dana Matthews who reviewed the assessment and plan. Chart, medications, labs, vital signs reviewed. Dictation was accomplished with the use of [employer] voice recognition software, prone to medical misidentifications and grammatical errors. This is unintentional and the practitioner does try to identify and correct these, but some could still be present. Please do not hesitate to contact practitioner for clarification. All questions answered to patients satisfaction. Patient verbalized understanding of diagnosis and treatments explained. To call sooner prior to next visit it any questions/concerns arise. Plan Of Treatment Pending Test Test Name Order Date CBC (COMPLETE BLOOD COUNT) WITH DIFF 07/2023 COMPREHENSIVE METABOLIC PANEL 11/05/2023 LIPID PANEL 11/05/2023 HEMOGLOBIN A1c 11/05/2023 INSULIN 11/05/2023 TSH 11/05/2023 VITAMIN D, 1,25 DIHYDROXY LC/MS/MS 11/04 Next Appt Details Provider Name:Venice Quispe, 1 05/08/2024 10:15:00 AM, [address], [facility] [facility], [place], [address], Provider Name:Venice Quispe, 1 06/12/2024 03:30:00 PM, [address], [address], [place], [address], Insurance Providers Payer Name Payer Address Payer Phone Subscriber Number Group Number Insured Name Patient Relationship to Insured Coverage Start Date Coverage End Date [facility] [address] [place] [id number] Emely White Self - patient is the insured 4 Medications Administered Medication Instructions Date of Administration Dosage Notes MICC B12 INJECTION 11/05/2023 Medical (General) History Medical History History ICD Code hypertension Arthritis anxiety chest pain Surgical History Surgery Date(Month/Year) breast reduction
--- OUTSIDE RECORDS SUMMARY | 2025-03-02 17:52 | XMS_ITS | Data Portability ---
Author Organization [facility]spin[facility], [facility] Address [address] [place] [address] Assessment Encounter Date Assessment Date Assessment LastModified by Organization Details LastModified Time 07/22/2023 07/22/2023 Foot and Ankle Follow-up Patient Note CC/Diagnosis: Left PCFD, PT tendinitis, type 2 accessory navicular Symptom onset: January 2023 HPI: Emely presents for routine follow-up. Last seen 6 weeks ago. Reports her symptoms are largely unchanged. Still having pain in the medial hindfoot. It is bothering her daily with activities and is better with rest. Rates her pain is 6/10. Here today for recheck MRI review. She has not been able to enact a number of the conservative measures discussed at her last visit. Has yet to get new orthotics. Has not started physical therapy. Reports she's been working on home range of motion exercises. Here to discuss further treatment options. Past family history, medical history, social history, allergies, and review of systems has been reviewed, updated and are located in the patient's chart. PHYSICAL EXAM: Constitutional: Healthy appearing individual in no acute distress Psychiatric: Alert and oriented Respiratory: Unlabored breathing Lymphatic: No lymphadenopathy in the foot/ankle Skin: No open wounds CV: Palpable pedal pulses Neuro: Light touch grossly intact MSK: Focused examination of the left foot and ankle- On standing exam she has pes planovalgus alignment. Symmetric bilaterally. On seated exam she does have swelling and darkening of her skin in the medial midfoot area of the navicular pole and the posture tibial tendon insertion. Tender more so over the posterior tibial tendon insertion than she has over the navicular pole. She is about 4-5 posterior tib strength with give way. Tender as it crosses underneath the medial malleolus. Negative Tinel's at the tarsal tunnel. Deformity is flexible and passively correctable. 5/5 peroneal strength. Supple ankle and hindfoot range of motion. No pain over the medial eminence of the bunion. She is able to single leg heel rise on the right with minimal assistance. She is not able to single leg heel rise on the left. Motor exam- intact dorsiflexion/plant arflexion, inversion/eversion Sensory exam- reports sensation intact to light touch SP/DP/S/S/T distributions Palpable DP/PT pulses, foot warm and well perfused, appropriate capillary refill IMAGING: MRI of the left ankle and hindfoot dated 06/14/2023 available in the [facility] was independently reviewed. Patient has inflammatory signal surrounding the posterior tibial tendon consistent with tenosynovitis without significant tendinopathy. Type 2 accessory navicular with mild edema. Mild inflammation mild inflammation of the peroneal tendons. No significant hindfoot degenerative changes. ASSESSMENT: Left PCFD, PT tendinitis, type 2 accessory navicular PLAN: We reviewed her diagnosis and the treatment plan moving forward. Emphasized I do think this is a condition that can respond to conservative measures. She still having some medial ankle and hindfoot pain. She was given an ankle stirrup brace for this for comfort and support without significant restriction. I do recommend she move forward with getting the medial arch support orthotics which were ordered at her last visit. Reemphasized the importance of physical therapy for posterior tibial tendon rehab. New prescription was provided. Continue anti-inflammatory modalities bit plan to see her back in 3 months if her symptoms fail to improve. Sooner if there are any issues. No x-rays at the next visit. Patient agrees with the plan, all questions answered. [email or web address] Not available 07/24/2023 11:06:54 Plan of Treatment Reminders Order Date Submit Date Provider Last Modified By Organization Details Last Modified Time Details Appointments None recorded. Lab None recorded. Referral physical therapist referral - post tib tedon rehab 2023 024 [email or web address] Not available 08:23:23 Procedures None recorded. Surgeries None recorded. Imaging None recorded. Medication Orders None recorded. Patient TargetsNo targets recorded. Patient InstructionsNo instructions recorded. Reason for Referral Physical Therapist Referral for Acquired pes planus of left foot post tib tedon rehab Referring Physician: Hema Terry, Orthopedic Surgery, Encounter Date: 07/22/2023 Results Created Date Observation Date Name Description Value Unit Range Abnormal Flag Note LastModifiedBy Organization Detail LastModifiedTime 01/03/2002/07/2021 imagi ng/di agnos tic resul t No observ ation record ed. [email or web address] Not Available 12/05 01:43:03 01/03/20 24 02/07/2021 imagi ng/di agnos tic resul t No observ ation record ed. [email or web address] Not Available 12/05 01:43:05 01/03/2006/14/2023 imagi ng/di agnos tic resul t No observ ation record ed. [email or web address] Not Available 12/05 01:43:21 Result Notes None recorded. Problems Name Problem SNOMED Code Status Onset Date Resolution Date Notes Provider Name and Address Organization Details Recorded Time No complaints 398100623 Active Status : 'A'; Not Available [facility] 4 09:23:37 Tendinitis of left posterior tibial tendon 8553816835937 00 Active 2023 Hema Terry MD [address], [place], [address] , [facility] 4 13:26:19 Acquired pes planus of left foot 2162894615884 08 Active 2023 Hema Terry MD [address], [place], [address] , [facility] 4 13:26:20 Problem Notes None recorded. Medical Equipment None Reported. Allergies Allergen ID Allergen Name Allergen Category Reaction Reaction Severity Criticality Documentation Date Start Date Code Code System Note Provider Name and Address Organization Details Recorded Time 86985 Bactrim medicatio n Not available Not available Not available 07/07/20232020 85437 9 RxNorm Not Available [facility] 4 12:31:58 Medications Name Sig Start Date Stop Date Status Note LastModified by Organization Details LastModified Time albuterol sulfate 2.5 mg/3 mL (0.083 %) solution for nebulizatio n Inhale 3 mL 3 times a day by nebulizat ion route. 07/20 completed Not Available Not Available Not Available atorvastati n 10 mg tablet Take 1 tablet every day by oral route. 07/20 completed Not Available Not Available Not Available Synthroid 100 mcg tablet Take 1 tablet every day by oral route. 07/20 completed Not Available Not Available Not Available sertraline 100 mg tablet Take 1 tablet every day by oral route. 07/21 completed Not Available Not Available Not Available clopidogrel 75 mg tablet Take 1 tablet every day by oral route. 07/20 completed Not Available Not Available Not Available peg-electro lyte solution 420 gram oral solution PLEASE SEE ATTACHED FOR DETAILED DIRECTION S 07/21 completed Not Available Not Available Not Available tramadol 50 mg tablet Take 1 tablet every 6 hours by oral route. 07/20 completed Not Available Not Available Not Available magnesium oxide 400 mg (241.3 mg magnesium) tablet TAKE 1 TABLET BY MOUTH EVERY DAY FOR 14 DAYS 07/21 completed Not Available Not Available Not Available baclofen 10 mg tablet Take 1 tablet 3 times a day by oral route. 07/21 completed Not Available Not Available Not Available lisinopril 10 mg tablet Take 1 tablet every day by oral route. 07/20 completed Not Available Not Available Not Available verapamil ER (PM) 300 mg capsule [address]hr pellet CT,ext.rele ase TAKE 1 CAPSULE BY MOUTH AT BEDTIME active Not Available Not Available No t Available docusate sodium 100 mg capsule TAKE 1 CAPSULE BY MOUTH TWICE A DAY NEEDED FOR CONSTIPAT ION 07/21 completed Not Available Not Available Not Available omeprazole 20 mg capsule,del ayed release Take 1 capsule every day by oral route. 07/20 completed Not Available Not Available Not Available verapamil ER 300 mg capsule,ext ended release Take 1 capsule every day by oral route. active Not Available Not Available No t Available methylpredn isolone 4 mg tablets in a dose pack TAKE 6 TABLETS ON DAY 1 DIRECTED ON PACKAGE AND DECREASE BY 1 TAB EACH DAY FOR A TOTAL OF 6 DAYS 07/21 completed Not Available Not Available Not Available sertraline 50 mg tablet TAKE 1 TABLET BY MOUTH EVERY DAY active Not Available Not Available No t Available oxycodone 5 mg tablet TAKE 1 TABLET BY MOUTH EVERY 6 HOURS NEEDED FOR PAIN 07/21 completed Not Available Not Available Not Available cyclobenzap rine 5 mg tablet 1 TABLET BY MOUTH DAILY AT BEDTIME,X 7 DAYS, NEEDED MODERATE PAIN 07/21 completed Not Available Not Available Not Available pregabalin 50 mg capsule TAKE 1 CAPSULE BY MOUTH TWICE A DAY active Not Available Not Available No t Available pregabalin 75 mg capsule Take 1 capsule twice a day by oral route. 07/21 completed Not Available Not Available Not Available Vitamin D3 07/21 completed Not Available Not Available Not Available cholecalcif deann (vitamin D3) 1,250 mcg (50,000 unit) capsule TAKE 1 CAPSULE BY MOUTH EVERY WEEK 07/21 completed Not Available Not Available Not Available Gavilax 17 gram/dose oral powder DISSOLVE 17 GRAMS IN WATER THEN TAKE BY MOUTH EVERY DAY NEEDED FOR CONSTIPAT ION 07/21 completed Not Available Not Available Not Available Eliquis 2.5 mg tablet Take 1 tablet twice a day by oral route. 07/20 completed Not Available Not Available Not Available aspirin 81 mg capsule Take 1 capsule every day by oral route. 07/20 completed Not Available Not Available Not Available Vitals Date Recorded Body height Body mass index (BMI) Body weight Provider Name and Address Organization Details Last Updated DateTime 07/22/2023 167.64 cm 33.7 kg/m2 45938.81 g Aimee [facility] 07/22/2023 13:50:36 Social History Question Answer Notes LastModified by Organizat ion Details LastModified Time Tobacco Smoking Status Never Smoker Aimee drew [place] [facility] 07/22/2023 13:53:35 Are You Blind Or Do You Have Difficulty Seeing? No Information not available 07/22/2023 Are You Deaf Or Do You Have Serious Difficulty Hearing? No Information not available 07/22/2023 Which Of Your Hands Is Dominant? Right Information not available 07/22/2023 What Is Your Relationship Status? Information not available 07/22/2023 Do You Have Difficulty Walking Or Climbing Stairs? No Information not available 07/22/2023 Sex: Unknown Functional Status Question Answer Note LastModified by Organizat ion Details LastModified Time What is your level of alcohol consumption? Occasional Information not available 07/22/2023 Do you have transportation difficulties? No Information not available 07/22/2023 Are you able to walk independently without assistance or assistive devices? YESWOREST Information not available 07/22/2023 Do you have difficulty doing errands alone? No Information not available 07/22/2023 Are you able to care for yourself independently? Yes Information not available 07/22/2023 Do you have difficulty dressing, bathing, grooming, or toileting? No Information not available 07/22/2023 Mental Status Question Answer Note LastModified by Organizat ion Details LastModified Time Do you feel stressed (tense, restless, nervous, or anxious, or unable to sleep at night)? [id number] Information not available 07/22/2023 Do you have difficulty concentrating, remembering or making decisions? No Information no t available 07/22/2023 Family History Nothing Reported. Medical History Condition Response Allergies/Hayfever N Coronary Artery Disease N Anxiety/Depression N Emphysema N Thyroid Problems N COPD N Pacemaker N Anemia N Vascular Disease N Heart Attack ([place]) N Gastrointestinal Disease N Diabetes N Autoimmune disease N Bleeding Disorder N Orthotics N Arthritis Y Seizures/Epilepsy N Blood Clot N AIDS/HIV N Congestive Heart Failure (CHF) N Acid Reflux (GERD) N Cancer N Stroke N Asthma N Peripheral Vascular Disease N Sleep Apnea Y Hepatitis N Heart Disease N Rheumatoid Arthritis N Pulmonary Embolism N Fibromyalgia N Hypertension Y Osteoporosis N Gynecological HistoryNo gynecological history recorded. Obstetrics History GPAL:G 0 P 0 0 0 0 Past Encounters Encounter ID Performer Location Encounter Start Date Encounter Closed Date Diagnosis/Indication Diagnosis SNOMED-CT Code Diagnosis ICD10 Code Diagnosis IMO Codes Diagnosis Note [id number] MD Silviano Kent [address] [place] [address] 07/22/2023 13:28:42 08/07/2023 08:23:22 Acquired pes planus of left foot 1697628272 30835 M21.42 Tendinitis of left posterior tibial tendon 8017039936 63864 M76.822 Pain of le ft ankle joint 2952844184 7925016 M25.572 Health Concerns Section Related Observation LastModified by Organization Detai ls LastModified Time None Recorded Concern Status LastModified by Organization Details LastModified Time None Recorded Advance Directives Directive None Recorded Payers Insurance Date Sequence Insurance Name Policy Number Policy Benavides Covered Member ID Benavides Member ID Guarantor Name 09/10/2023 1 [facility] [id number] Emely White [id number] Emely White OBGyn Episode No OBEpisode recorded.
--- OUTSIDE RECORDS SUMMARY | 2025-03-02 17:52 | XMS_ITS | Clinical Summary ---
Author Organization 175 [facility] Address [address] [place] [address] Phone Care Team Providers Care Accounts Payable Professional Name Role Phone Venice Quispe Primary Care Provider [phone] Allergies Active Allergy Reactions Criticality Noted Date Comments Sulfamethoxazole-Trimethoprim Other High 2024 Jaws locked and became rigid Sulfacetamide Sodium Other High 05/07/2005 jaw locked up-per patient Medications dicyclomine (BENTYL) 20 mg tablet PLEASE SEE ATTACHED FOR DETAILED DIRECTIONS 4 Active magnesium glycinate 100 mg magnesium capsule Take 200 mg (2 capsules total) by mouth 1 (one) time each day. 4 Active pregabalin (LYRICA) 75 mg capsule TAKE 1 CAPSULE BY MOUTH 2 TIMES A DAY,X30 DAYS UNTIL SHE SEES PMR 4 Active sertraline (ZOLOFT) 50 mg tablet Take 1 tablet (50 mg total) by mouth 1 (one) time each day. 4 Active verapamil ER (VERELAN PM) 300 mg 24 hr capsule Take 1 capsule (300 mg total) by mouth. at bedtime 4 Active ciclopirox (PENLAC) 8 % solution APPLY TOPICALLY DIRECTED USE DAILY AND REMOVE WITH ALCOHOL SWAB AFTER 1 WEEK 5 Active Zepbound 2.5 mg/0.5 mL injection 2.5mg Subcutaneous once weekly for 30 days 5 Active HYDROmorphone (DILAUDID) 2 mg tablet 1-2 tabs PO Q4-6 hours as needed for severe pain. 20 tablet Active Active Problems Problem Noted Date Diagnosed Date Supraventricular tachycardia ([facility] V24) 09/15 Spinal stenosis, lumbar region with neurogenic c laudication 08/17/2024 Assessment & Plan (09/15/2024 2:29 PM EDT): Ms. Calvinist significant improvement in her severe left leg pain since the surgery. She does have intermittent grabbing pain at the left knee but says that she has not had that pain for 2 days. She denies fevers shakes or chills or issues with bowel or bladder control. She is neurologically intact and ambulating with a cane. I am going to send her for physical therapy and I gave her a note for returning to work on November 02. She will follow-up in our office after the therapy. Assessment & Plan (08/23/2024 4:14 PM EDT): Pt was last seen July 09, 2024 for persistent left lateral leg pain that she would rate 10/10, tingling in all toes of her left foot. She gets pain in the buttocks as well, worse the last few months. Today she follows up to review her L/S MRI and discuss surgery for L4-5 decompression (scheduled 09/02/24). 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 Back and buttock pain worse with coughing or straining. Difficulty turning over in bed. no on past visit she also described left lower abdominal pain, with further questioning today it seems to be more left groin pain, at times it does go to the left anterior thigh. Per patient, prior [facility] C[facility] ASSOCIATE eval for abdominal pain was negative. L/S MRI 08/05/24 shows severe stenosis at L4-5 (transitional anatomy). Her L/S X-rays were negative for instability. Dr. Durant offered pt L4-5 lumbar decompression (third from lowest disc space) if sxs are severe and since pain has not improved with conservative tx. Patient states symptoms are severe, affecting her daily life, would like to proceed with surgery. I called her cardiology office, they will see her 08/31/2024 at 2:15 PM for preop eval. She had her annual visit scheduled for October, they will keep that appointment as well. Patient recently started Mounjaro, is aware she would have to stop taking it 1 week prior to surgery, will not take her dose this week, is also aware only to drink clear liquids the day before surgery. No NSAIDs week prior to surgery. We discussed the surgery in detail, postop restrictions and expectations, risks and benefits, including but not limited to need for general anesthesia, risk for spinal fluid leak, damage to a nerve root causing permanent weakness or numbness, infection, hematoma. Patient given Hibiclens body wash and instruction sheet. Since she is also describing left groin pain that at times goes to the anterior thigh, + hip mechanicals on exam, I ordered left hip x-rays. She may need referral to orthopedics. All questions answered on today's visit. Asked her to call with any additional questions or concerns. Lumbosacral radiculopathy 06/06/2009 Assessment & Plan (07/10/2024 11:06 PM EST): Patient follows up today and notes persistent left lateral leg pain that she would rate 10/10, tingling in all toes of her left foot. She gets pain in the buttocks as well, feels it's worse the last few months. She has been taking Ibuprofen and Gabapentin, recently started NSAIDS because she also has been getting left shoulder pain (seems to be tendinitis, pain with lifting laterally or overhead, when putting her arm into a jacket sleeve) and costochondritis. She also has seen her doctor for left lower abdomen pain, had a pelvic U/S that came back negative. She is hoping they will order a CT scan next as part of her abdominal pain W/U. She has been going for acupuncture with Jen Goss over the last few months since her last office visit, and does feel it helps for a few days after the session. She has been doing some PT type exercises at home as well but hasn't seen that is helping much, did not start official outpt PT. Denies falls, B/B incontinence. Ms. Reyes has severe and persistent LBP, left buttock and lateral leg pain, numbness in her foot. Her insurance company denied the MRI but we will reorder to see if they will approve it since she isn't better with conservative txs the last 2- 3 months. I gave her Medrol dosepack to see if it can hopefully help her left leg pain, but explained it might help her shoulder tendinitis and SI joint tenderness as well. She is aware not to take NSAIDS with steroids and denies h/o DM. I gave her a new rx for PT to help with shoulder pain, SI joint pain and radiculopathy. She will stop the steroids if any negative SE's and call the office. We also discussed some sxs she is experiencing could be related to musculoskeletal syndrome of menopause, can d/w [facility]RI[facility] C[facility] ASSOCIATE or menopause specialist. All questions answered. I will call her with MRI results and review with Dr. Durant. Assessment & Plan (04/13/2024 4:10 PM EST): Patient describes living in chronic constant back pain, all day every day , feels like her bones are being crushed when she is sitting. She states she has had back issues since a teenager, things got worse after her epidural with her second child , over the last 7 years things progressively are worsening. She has a hard time standing for a length of time, works as a teacher, sometimes feels like her back will lock up on her. A few months ago she was started noticing pain in the left anterior thigh to the knee, somewhat in the groin, it wakes her up at night. She also describes left buttock and posterior thigh pain. She denies any right leg symptoms. She has to keep moving around and stay busy at home to deal with the pain. She rates her pain a constant 10/10, with meds pain can get down to a 3-4/10. She was started on pregabalin 75 mg twice daily which will help for a couple hours, uses Tylenol, in the past had to stop taking NSAIDs. She has been getting cortisone injections since her 20s. She did physical therapy last year, states her pain got worse afterward. Patient brought a CD with some old imaging studies including thoracic MRI 02/07/2021, shows some scoliosis and degenerative disc changes, reports of spine x-ray 10/07/2018 showing levoscoliosis, lumbar spine x-ray 09/07/2022 with degenerative changes but no spondylolysis or spondylolisthesis. [facility] pain management notes mention MRI lumbar spine 09/23/2018 showing mild disc herniation, marked degenerative facet arthropathy L3-4 with mild central stenosis, moderate left and mild to moderate right foraminal stenosis. Mild right lateral disc protrusion L4-5 causing flattening of the dural sac, very mild right foraminal stenosis. Transitional L5 vertebral body. Facet arthropathy L1-2, L2-3. I reviewed imaging with patient. Ms. Reyes describes chronic transverse low back pain, tenderness around SI joint region, worsening posture with her right shoulder lower than her left, which could be from her scoliosis. She will need updated MRI thoracic and lumbar spine to better evaluate her current issues. She may have some SI joint pain from ambulating with poor alignment, may also have some hip pain, may benefit from hip x-rays, but we did not order them today. She thinks she has had SI joint injections in the past, is not interested in any additional injections. I did recommend she try aquatic physical therapy, prescription provided. I also gave her the name of a couple acupuncturists, see if we can help her pain somewhat with conservative treatments. I will call her with results of the MRIs once completed. Herniated lumbar intervertebral disc 06/06/2009 Facet syndrome 06/06/2009 Carcinoma in situ of cervix uteri 02/17/2007 Obesity, unspecified 06/24/2006 Goiter 06/24/2006 Overview (04/02/2024): IMO update Lumbago 08/14/2005 Overview (04/02/2024): Sees Dr Nolan, [facility] Idiopathic scoliosis and kyphoscoliosis 08/15/19 06 Cervicalgia 08/14/2005 Encounters Date Type Department Care Team Description 12/28/2024 4:30 PM EDT Treatment [address] [address] Kieran Patel, DIEGO Spinal stenosis, lumbar region with neurogenic claudication (Primary Dx) from Last 3 Months Immunizations Immunization Administration Dates Next Due PPD Test 11/10/2006,06/29/1996 Td Tetanus diptheria (Tdvax) 7yo and older 01/31 Tdap Tetanus diptheria acell ular pertussis (Boostrix; Adacel) 7yo and older 06/24/2006 Surgical History Surgery Date Site/Laterality Comments TUBAL LIGATION 2002 BREAST REDUCTION 05/05/2009 - 2010 Medical History Medical History Date Comments Lumbago 08/14/2005 Scoliosis (and kyphoscoliosis), idiopathic 08/14/2005 Cervicalgia 08/14/2005 Obesity, unspecified 06/24/2006 Goiter, unspecified 06/24/2006 Anxiety Headache HTN (hypertension) SVT (supraventricular tachycardia) (CMS/HCC V24) ALEXANDER (obstructive sleep apnea) Hyperthyroidism Family History Medical History Relation Name Comments Breast cancer Aunt Blindness Neg Hx Cataracts Neg Hx Glaucoma Neg Hx Macular degeneration Neg Hx Strabismus Neg Hx Relation Name Status Comments Aunt 2 Mat Aunts d of breast CA, & 3rd Aunt has it. Father Alive biol. father un known Mother Alive Diabetes Social History Tobacco Use Types Packs/Day Years Used Date Smoking Tobacco: Former Cigarettes Q uit: 05/05/1999 Passive Smoke Exposure: Never Smokeless Tobacco: Never Tobacco Cessation:Counseling Given: Not Answered Alcohol Use Standard Drinks/Week Comments Yes 0 (1 standard drink = 0.6 oz pur e alcohol) occasionally Interpersonal Safety Answer Date Record ed Physical Abuse Unrecognized value 09/02/2024 Verbal Abuse Unrecognized value 09/02/2024 Comments No Sex and Gender Information Value Date Recorded Sex Assigned at Not on file Legal Sex Female 2:12 PM EST Gender Identity Not on file Sexual Orientation Not on file Obstetrics History Last Filed Vital Signs Vital Sign Reading Time Taken Comments Blood Pressure 158/82 09/02/2024 10:18 AM EDT Pulse 91 09/02/2024 10:18 AM EDT Temperature 37.2 C (98.9 F) 09/02/2024 10:18 AM EDT Respiratory Rate 20 09/02/2024 10:18 AM EDT Oxygen Saturation 99% 09/02/2024 10:18 AM EDT Inhaled Oxygen Concentration - - Weight 95.3 kg (210 lb) 09/15/2024 1:58 PM EDT Height 165.1 cm (5' 5 ) 09/15/2024 1:58 PM EDT Body Mass Index 34.95 09/15/2024 1:58 PM EDT Plan of Treatment Health Maintenance Due Date Last Done Comments Colorectal Cancer Screening: Colonoscopy 1966 Hepatitis B Vaccines (1 of 3 - 19+ 3-dose series) 1985 Cervical Cancer Screening: P ap Smear 02/22/2011 02/23/2008 Breast Cancer Screening 08/23/2011 08/22/2009 Pneumococcal Vaccine: 50+ Years (1 of 1 - PCV) 2016 Zoster Vaccines (1 of 2) 2016 DTaP,Tdap,and Td Vaccines (3 - Td or Tdap) 06/24/2016 06/24/2006, 02/01/1992 Cholesterol Screening (Lipid Panel) 04/03/2022 06/26/2006 Social Influencers of Health Screening 04/03/2022 Depression Screening 05/05/2024 Hypertension/CHF/CAD Annual BMP Blood Test 09/20/2024 06/26/2006 COVID-19 Vaccine (4 - 2024-2 6 season) 2025 03/27/2021, 08/14/2020, 07/16/2020 Influenza Vaccine (#1) 2025 RSV Immunization Adult Patients (1 - 1-dose 75+ series) 2041 HIV Screening Completed 08/28/2006 Hepatitis C Screening Completed 09/10/2006 HIB Vaccines Aged Out No longer eligi ble based on patient's age to complete this topic HPV Vaccines Aged Out No longer eligi ble based on patient's age to complete this topic Hepatitis A Vaccines Aged Out No long er eligible based on patient's age to complete this topic IPV Vaccines Aged Out No longer eligi ble based on patient's age to complete this topic MMR Vaccines Aged Out No longer eligi ble based on patient's age to complete this topic Meningococcal ACWY Vaccine Aged Out N o longer eligible based on patient's age to complete this topic Meningococcal B Vaccine Aged Out No l onger eligible based on patient's age to complete this topic RSV Immunization Patients Under 20 months Aged Out No longer eligible b ased on patient's age to complete this topic Varicella Vaccines Aged Out No longer eligible based on patient's age to complete this topic Goals Goal Patient Goal Type Associated Problems Recent Progress Patient-Stated? Author PT LTGs General No Greg Rodríguez, PT Note: Pt will increase lumbar AROM to WNL Pt will report no ERP with lumbar AROM testing Pt will be independent with HEP Procedures Procedure Name Priority Date/Time Associated Diagnosis Comments PAP SMEAR Routine 02/23/2008 HEPATITIS C SCREENING Routine 09/10/2006 HIV SCREENING Routine 08/28/2006 ANNUAL BMP BLOOD TEST Routine 06/26/2006 LIPID PANEL Routine 06/26/2006 from Last 3 Months or Most Recently Relevant to Health Maintenance Results * Pap Smear (02/23/2008) [facility] Pap smear abstracted, no interpretation Result [facility] Provider HEALTH MAINTENANCE Final Result * Hepatitis C Screening (09/10/2006) [facility] Hepatitis C Screening abstracted Result [facility] HEALTH MAINTENANCE Final Result * HIV Screening (08/28/2006) [facility] HIV Screening abstracted Result [facility] Provider HEALTH MAINTENANCE Final Result * Annual BMP Blood Test (06/26/2006) [facility] Annual BMP Blood Test abstracted Result [facility] Provider HEALTH MAINTENANCE Final Result * (ABNORMAL) Lipid panel (06/26/2006) [facility] LDL/HDL Ratio 5(A) 0 - 4 Triglycerides 111 0 - 150 mg/dL Cholesterol 189 0 - 200 mg/dL HDL 42 >=40 mg/dL LDL Cholesterol 125(A) 0 - 100 mg/dL Blood Venous blood specimen / Unknown Result [facility] Provider LAB BLOOD ORDERABLES Tana l Result from Last 3 Months or Most Recently Relevant to Health Maintenance [facility] Care Teams Accounts Payable Professional Relationship Specialty Start Date End Date Venice Quispe PA [address] [place] [id number] PCP - General 09/15/24
== END 2025-03-02 15:40 | disposition home or self-care (01) ==
LOC: HO.HMCHD 13:57
PROVIDERS: PCP Internal Medicine; Visit Provider Internal Medicine
DX: Z00.00 Encounter for general adult medical examination without abnormal findings (principal); I10 Essential (primary) hypertension; E66.9 Obesity, unspecified; Z68.30 Body mass index [BMI] 30.0-30.9, adult; M25.512 Pain in left shoulder; R25.2 Cramp and spasm

== ENCOUNTER 2025-03-04 11:10 | Outpatient (REF) | payer OTHER, SELFPAY ==
--- OUTSIDE RECORDS SUMMARY | 2023-12-17 10:00 | XMS_ITS ---
Author Organization [facility] [address] Address [address] [place] [address] Care Team Providers Care Bedspread Cutter Hand Name Role Phone Sharda Guzman Primary Care Provider Unavaila Venice Morris Unavailable [phone] Encounters Encounter Location Date Provider Diagnosis [facility] [address] [facility] [address] [place] [address] 12/17/2023 Venice Quispe Plan Of Treatment Next Appt Details Provider Name:Venice Quispe, 1 05/08/2024 10:15:00 AM, 299 [facility], [address], [address], Provider Name:Venice Quispe, 1 06/12/2024 03:30:00 PM, 299 [facility], [facility] [address], [place], [address], Progress Notes * Rosa REYESOB: 6 (59 yo F)Acc No.[id number]:12/17/2023 Patient: Marika Emely MOON Provider: Kathy Quispe PA-C :1965 A ge:58 Y S ex:Female Date:12/17/2023 Address:[address] [place] [address] Pcp:Sharda Guzman Subjective: * Chief Complaints: * * Medical History: Objective: * Vitals: Assessment: Plan: * Treatment: * Images: Billing Information: * Visit Code: * Procedure Codes: * Electronic signature of Venice Quispe PA-C on 03/04/2025 at 12:46 PM EDT Sign off status: Pending * Provider: Kathy Quispe PA-C Date: 0 12/17/2023 Generated for Pérez mckeon/Noel/Zabrina on: 1 12:46 PM EDT
--- OUTSIDE RECORDS SUMMARY | 2024-01-22 11:30 | XMS_ITS ---
Author Organization [facility] [address] Address [address] [place] [address] Care Team Providers Care Scientific Artist Name Role Phone Sharda Guzman Primary Care Provider Venice Oconnor Unavailable [phone] Medications Medication SIG (Take, Route, Frequency, Duration) Notes Start Date End Date Status Sertraline HCl 50 MG 1 tablet Orally Once a day Active Wegovy 0.25 MG/0.5ML 0.5 mL Subcutaneous once weekly; Duration: 30 days 11/05/2023 Active Verapamil HCl ER 300 MG TAKE 1 CAPSULE B Y MOUTH AT BEDTIME Oral; Duration: 90 Days Active Magnesium Glycinate 100 MG TAKE 2 CAPSULES BY MOUTH EVERY DAY Oral; Duration: 30 Days Active Encounters Encounter Location Date Provider Diagnosis [facility] [address] [place] [address] 01/22/2024 Venice Quispe Plan Of Treatment Next Appt Details Provider Name:Venice Quispe, 1 05/08/2024 10:15:00 AM, [address] [place] [address], [address], Provider Name:Venice Quispe, 1 06/12/2024 03:30:00 PM, [address] [place] [address], [address], Progress Notes * Rosa REYESOB: 6 (59 yo F)Acc No.[id number]:01/22/2024 Patient: Emely HOUSTON Provider: Kathy Quispe PA-C :1965 A ge:58 Y S ex:Female Date:01/22/2024 Address:[address] [place], [place] [address] Pcp:Sharda Guzman Subjective: * Chief Complaints: * * HPI: C onstitutional: Emely is a 58-year-old female here today for weight management follow up. Past medical history significant for hypertension, anxiety, arthritis and back pain. She also reports prior history of thyroid nodule with a benign biopsy. Has back issues/sciatica/arthritis that can limit exercise Highest weight: 230 Lowest weight: 150 (size 8) Current weight: Weight last visit: 213 Goal weight: size 12 (currently size 18 clothes) Trials in the past: watching what she eats Protein intake: not great Water intake: fair, but has been drinking more juice recently, has cut out soda Exercise: Walking Barriers: Back pain/sciatica, tends to eat later at night FH: No thyroid cancer Recent Labs: last yr. PCP: Jorge Guzman Has had some palpitations, did 4 day holter- normal. Has had fluttering. Following with cardiology. * Medical History: * Medications: T aking Wegovy 0.25 MG/0.5ML Solution Auto-injector 0.5 mL Subcutaneous once weekly , Taking Sertraline HCl 50 MG Tablet 1 tablet Orally Once a day , Taking Magnesium Glycinate 100 MG Capsule TAKE 2 CAPSULES BY MOUTH EVERY DAY Oral , Taking Verapamil HCl ER 300 MG Capsule Extended Release 24 Hour TAKE 1 CAPSULE BY MOUTH AT BEDTIME Oral Objective: * Vitals: Assessment: Plan: * Treatment: * Images: Billing Information: * Visit Code: * Procedure Codes: * Electronic signature of Venice Quispe PA-C on 03/04/2025 at 12:46 PM EDT Sign off status: Pending * Provider: Kathy Quispe PA-C Date: 0 01/22/2024 Generated for Pérez mckeon/Noel/Zabrina on: 1 12:46 PM EDT History and Physical Notes * HPI (History of Present Illness) Category Sub-Category Detail Notes Category Not es Constitutional Emely is a 58-year-old female here today for weight management follow up. Past medical history significant for hypertension, anxiety, arthritis and back pain. She also reports prior history of thyroid nodule with a benign biopsy. Has back issues/sciatica/arthritis that can limit exercise Highest weight: 230 Lowest weight: 150 (size 8) Current weight: Weight last visit: 213 Goal weight: size 12 (currently size 18 clothes) Trials in the past: watching what she eats Protein intake: not great Water intake: fair, but has been drinking more juice recently, has cut out soda Exercise: Walking Barriers: Back pain/sciatica, tends to eat later at night FH: No thyroid cancer Recent Labs: last yr. PCP: Jorge Thomas Has had some palpitations, did 4 day holter- normal. Has had fluttering. Following with cardiology.
--- OUTSIDE RECORDS SUMMARY | 2024-07-19 11:00 | XMS_ITS ---
Author Organization [facility] [address] Address [address] [place] [address] Care Team Providers Care Inventory Control Assistant Name Role Phone Sharda Guzman Primary Care Provider Unavaila Venice Morris Unavailable [phone] Encounters Encounter Location Date Provider Diagnosis [facility] [address] [facility] [address] [place] [address] 07/19/2024 Venice Quispe Plan Of Treatment Next Appt Details Provider Name:Venice Quispe, 1 05/08/2024 10:15:00 AM, 299 [facility], [address], [address], Provider Name:Venice Quispe, 1 06/12/2024 03:30:00 PM, 299 [facility], [facility] [address], [address], Progress Notes * Rosa REYESOB: 6 (59 yo F)Acc No.[id number]:07/19/2024 Patient: Marika Emely MOON Provider: Kathy Quispe PA-C :1965 A ge:59 Y S ex:Female Date:07/19/2024 Address:[address] [place] [address] Pcp:Sharda Guzman Subjective: * Chief Complaints: * * Medical History: Objective: * Vitals: Assessment: Plan: * Treatment: * Images: Billing Information: * Visit Code: * Procedure Codes: * Electronic signature of Venice Quispe PA-C on 03/04/2025 at 12:46 PM EDT Sign off status: Pending * Provider: Kathy Quispe PA-C Date: 0 07/19/2024 Generated for Pérez mckeon/Noel/Zabrina on: 1 12:46 PM EDT
--- OUTSIDE RECORDS SUMMARY | 2024-12-21 11:30 | XMS_ITS ---
Author Organization [facility] [address] Address [address] [place] [address] Care Team Providers Care Dry Sander Name Role Phone Sharda Guzman Primary Care Provider Venice Oconnor Unavailable [phone] Medications Medication SIG (Take, Route, Frequency, Duration) Notes Start Date End Date Status Wegovy 0.25 MG/0.5ML 0.5 mL Subcutaneous once weekly; Duration: 30 days 11/04/2024 Active Zepbound 5 MG/0.5ML 0.5 mL Subcutaneous; Duration: 30 day(s) Active Sertraline HCl 50 MG 1 tablet Orally Once a day Active Verapamil HCl ER 300 MG TAKE 1 CAPSULE B Y MOUTH AT BEDTIME Oral; Duration: 90 Days Active Magnesium Glycinate 100 MG TAKE 2 CAPSULES BY MOUTH EVERY DAY Oral; Duration: 30 Days Active Encounters Encounter Location Date Provider Diagnosis [facility] [address] [address] 12/21/2024 Venice Quispe Plan Of Treatment Next Appt Details Provider Name:Venice Quispe, 1 05/08/2024 10:15:00 AM, [address], [address], Provider Name:Venice Quispe, 1 06/12/2024 03:30:00 PM, [address], [address], Progress Notes * Rosa REYESOB: 6 (59 yo F)Acc No.[id number]:12/21/2024 Patient: Emely HOUSTON Provider: Kathy Quispe PA-C :1965 A ge:59 Y S ex:Female Date:12/21/2024 Address:[address] [place], [place] [address] Pcp:Sharda Guzman Subjective: * Chief Complaints: * * Medical History: * Medications: T aking Sertraline HCl 50 MG Tablet 1 tablet Orally Once a day , Taking Magnesium Glycinate 100 MG Capsule TAKE 2 CAPSULES BY MOUTH EVERY DAY Oral , Taking Verapamil HCl ER 300 MG Capsule Extended Release 24 Hour TAKE 1 CAPSULE BY MOUTH AT BEDTIME Oral , Taking Zepbound 5 MG/0.5ML Solution Auto-injector 0.5 mL Subcutaneous , Taking Wegovy 0.25 MG/0.5ML Solution Auto-injector 0.5 mL Subcutaneous once weekly Objective: * Vitals: Assessment: Plan: * Treatment: * Images: Billing Information: * Visit Code: * Procedure Codes: * Electronic signature of Venice Quispe PA-C on 03/04/2025 at 12:46 PM EDT Sign off status: Pending * Provider: Kathy Quispe PA-C Date: 0 12/21/2024 Generated for Pérez mckeon/Noel/Zabrina on: 1 12:46 PM EDT
--- NOTE | ~2025-03-04 | XR_ITS ---
EXAMINATION: XR SHOULDER 2 OR MORE VIEWS LEFT HISTORY: M25.512 - Pain in left shoulder COMPARISON: There are no prior studies available for comparison. FINDINGS: Three views of the left shoulder are submitted. Osseous mineralization is normal. There is no fracture or dislocation. The glenohumeral joint is maintained. There is moderate osteoarthritis of the AC joint, with joint space narrowing and osteophyte formation. The soft tissues are unremarkable. XR/XR shoulder LT min 2V IMPRESSION: Moderate osteoarthritis of the AC joint. Electronically signed by: Greg Hewitt MD 03/04/2025 11:40 AM EDT
--- OUTSIDE RECORDS SUMMARY | 2025-03-04 12:47 | XMS_ITS | Clinical Summary ---
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 Back and buttock pain worse with coughing or straining. Difficulty turning over in bed. no on past visit she also described left lower abdominal pain, with further questioning today it seems to be more left groin pain, at times it does go to the left anterior thigh. Per patient, prior [facility] eval for abdominal pain was negative. L/S [...] to musculoskeletal syndrome of menopause, can d/w F[facility]NACE FEEDER or menopause specialist. All questions answered. I [...] degenerative changes but no spondylolysis or spondylolisthesis. [facility] pain management notes mention MRI lumbar spine [...] Lumbago 08/14/2005 Overview (04/02/2024): Sees Dr Nolan, [facility] Idiopathic scoliosis and kyphoscoliosis 08/15/19 06 Cervicalgia 08/14/2005 Encounters Date Type Department Care Team Description 12/28/2024 4:30 PM EDT Treatment [address] [address] Kieran Patel, DIEGO Spinal stenosis, [...] Health Maintenance Results * Pap Smear (02/23/2008) [facility] Pap smear abstracted, no interpretation Result [facility] Provider HEALTH MAINTENANCE Final Result * Hepatitis C Screening (09/10/2006) [facility] Hepatitis C Screening abstracted Result [facility] HEALTH MAINTENANCE Final Result * HIV Screening (08/28/2006) [facility] HIV Screening abstracted Result [facility] Provider HEALTH MAINTENANCE Final Result * Annual BMP Blood Test (06/26/2006) [facility] Annual BMP Blood Test abstracted Result [facility] Provider HEALTH MAINTENANCE Final Result * (ABNORMAL) Lipid panel (06/26/2006) [facility] LDL/HDL Ratio 5(A) 0 - 4 Triglycerides 111 0 - 150 mg/dL Cholesterol 189 0 - 200 mg/dL HDL 42 >=40 mg/dL LDL Cholesterol 125(A) 0 - 100 mg/dL Blood Venous blood specimen / Unknown Result [facility] Provider LAB BLOOD ORDERABLES Tana l Result from Last 3 Months or Most Recently Relevant to Health Maintenance [facility] Care Teams Muck Boss Relationship Specialty Start Date End Date Venice Quispe PA [address] [place] [id number] PCP - General 09/15/24
--- OUTSIDE RECORDS SUMMARY | 2025-03-04 12:47 | XMS_ITS | Patient Health Record ---
Author Organization [facility] Address [address] [place] [address] Care Team Providers Care Metal Cleaner Name Role Phone Sharda Guzman Primary Care Provider Venice Oconnor Unavailable [phone] Allergies Allergen (clinical drug ingredient) Drug/Non Drug [...] Status Risk Notes Problem Vitamin D deficiency (55902872) Vitamin D deficiency, unspecified (E55.9) Active confirmed Problem Obesity due to excess calories (481729445) Other obesity due to excess calories (E66.09) Active confirmed Problem Anxiety (93300574) Anxiety (F41.9) Active confirmed Problem Thyroid nodule (401297554) Thyroid nodule (E04.1) Active confirmed Problem Obstructive sleep apnea syndrome (25521107) ALEXANDER (obstructive sleep apnea) (G47.33) Active confirmed Problem Obese class II (302721392809583 ) BMI 35.0-35.9,adult (Z68.35) Active confirmed Problem BMI 30+ - obesity (513223809) BMI 32.0-32.9,adult (Z68.32) Active confirmed Problem Primary hypertension (49441035) Primary hypertension (I10) Active confirmed Problem Body mass index 30.00 to 34.99 (969409355838957 ) BMI 31.0-31.9,adult (Z68.31) Active confirmed Problem Body mass index 30.00 to 34.99 (844814010682078 ) BMI 34.0-34.9,adult (Z68.34) Active confirmed Vital Signs Heart Rate 81 /min 01/25/2025 Blood pressure diastolic 82 mm Hg 01/25/2025 Oximetry 99 % 01/25/2025 Height 65.75 in 01/25/2025 Blood pressure systolic 132 mm Hg 01/25/2025 Weight 192.9 lbs 01/25/2025 BMI 31.37 kg/m2 01/25/2025 Encounters Encounter Location Date Provider Diagnosis [facility] [address] [address] 07/21/2024 Venice Svrcek Other obesity due to excess calories E66.09 ; BMI 35.0-35.9,adult Z68.35 ; ALEXANDER (obstructive sleep apnea) G47.33 ; Primary hypertension I10 ; Anxiety F41.9 ; Thyroid nodule E04.1 and Weight loss counseling, encounter for Z71.3 [facility] [address] [address] 08/25/2024 Venice Svrcek Other obesity due to excess calories E66.09 ; BMI 34.0-34.9,adult Z68.34 ; ALEXANDER (obstructive sleep apnea) G47.33 ; Primary hypertension I10 ; Anxiety F41.9 ; Thyroid nodule E04.1 and Weight loss counseling, encounter for Z71.3 [facility] [address] [address] 10/07/2024 Venice Svrcek Other obesity due to excess calories E66.09 ; BMI 32.0-32.9,adult Z68.32 ; ALEXANDER (obstructive sleep apnea) G47.33 ; Primary hypertension I10 and Weight loss counseling, encounter for Z71.3 [facility] [address] [address] 11/04/2024 Venice Svrcek Other obesity due to excess calories E66.09 ; BMI 32.0-32.9,adult Z68.32 ; ALEXANDER (obstructive sleep apnea) G47.33 ; Primary hypertension I10 and Weight loss counseling, encounter for Z71.3 [facility] [address] [address] 01/25/2025 Venice Svrcek Other obesity due to excess calories E66.09 ; BMI 31.0-31.9,adult Z68.31 ; ALEXANDER (obstructive sleep apnea) G47.33 ; Primary hypertension I10 and Weight loss counseling, encounter for Z71.[address] [facility] [address] [place] [address] 06/23/2024 Venice Svrcek [facility] [address] [address] 07/21/2024 Venice Svrcek [facility] [address] [address] 07/26/2024 Venice Svrcek Other obesity due to excess calories E66.09 [facility] [address] [address] 10/07/2024 Venice Svrcek Other obesity due to excess calories E66.[address] [facility] [address] [place] [address] 10/28/2024 Venice Svrcek [facility] [address] [address] 11/04/2024 Venice Svrcek [facility] [address] [place] [address] 11/25/2024 Veniec Svrcek [facility] [address] [address] 12/20/2024 Venice Svrcek [facility] [address] [place] [address] 12/22/2024 Venice Quispe Other obesity due to [...] Dictation was accomplished with the use of Calleoo voice recognition software, prone to medical misidentifications [...] Dictation was accomplished with the use of Cal[employer] voice recognition software, prone to medical misidentifications [...] Dictation was accomplished with the use of Cal[employer] voice recognition software, prone to medical misidentifications [...] Dictation was accomplished with the use of Cal[employer] voice recognition software, prone to medical misidentifications [...] Dictation was accomplished with the use of [employer] voice recognition software, prone to medical misidentifications [...] Dictation was accomplished with the use of [employer] voice recognition software, prone to medical misidentifications [...] Dictation was accomplished with the use of Cal[employer] voice recognition software, prone to medical misidentifications [...] Dictation was accomplished with the use of Calle[employer] voice recognition software, prone to medical misidentifications [...] Dictation was accomplished with the use of Cal[employer] voice recognition software, prone to medical misidentifications [...] Dictation was accomplished with the use of Calle[employer] voice recognition software, prone to medical misidentifications [...] Dictation was accomplished with the use of Cal[employer] voice recognition software, prone to medical misidentifications [...] Dictation was accomplished with the use of Calleoo voice recognition software, prone to medical misidentifications [...] Dictation was accomplished with the use of Calle[employer] voice recognition software, prone to medical misidentifications [...] Dictation was accomplished with the use of Calle[employer] voice recognition software, prone to medical misidentifications [...] Dictation was accomplished with the use of Calle[employer] voice recognition software, prone to medical misidentifications [...] Dictation was accomplished with the use of Calle[employer] voice recognition software, prone to medical misidentifications [...] Dictation was accomplished with the use of Calle[employer] voice recognition software, prone to medical misidentifications [...] Dictation was accomplished with the use of Calleoo voice recognition software, prone to medical misidentifications [...] Dictation was accomplished with the use of Calle[employer] voice recognition software, prone to medical misidentifications [...] Dictation was accomplished with the use of Calle[employer] voice recognition software, prone to medical misidentifications [...] Dictation was accomplished with the use of Cal[employer] voice recognition software, prone to medical misidentifications [...] coordination Case discussed with collaborating physician Dana Mattehws who reviewed the assessment and plan. Chart, medications, labs, vital signs reviewed. Dictation was accomplished with the use of Calleoo voice recognition software, prone to medical misidentifications [...] Dictation was accomplished with the use of Calle[employer] voice recognition software, prone to medical misidentifications [...] Dictation was accomplished with the use of Calle[employer] voice recognition software, prone to medical misidentifications [...] Dictation was accomplished with the use of Calle[employer] voice recognition software, prone to medical misidentifications [...] Dictation was accomplished with the use of Calle[employer] voice recognition software, prone to medical misidentifications [...] Dictation was accomplished with the use of Calleoo voice recognition software, prone to medical misidentifications [...] Dictation was accomplished with the use of Calle[employer] voice recognition software, prone to medical misidentifications [...] Dictation was accomplished with the use of Cal[employer] voice recognition software, prone to medical misidentifications [...] 05/08/2024 10:15:00 AM, [address], [address] [facility], [place], [address], Provider Name:Venice Quispe, 1 06/12/2024 03:30:00 PM, [address], [address], [place], [address], Insurance Providers Payer Name Payer Address Payer Phone Subscriber Number Group Number Insured Name Patient Relationship to Insured Coverage Start Date [facility]age End Date [facility] [address] [place] [id number] Emely White Self - patient is the insured 4 Medications Administered Medication Instructions Date of Administration Dosage Notes MICC B12 INJECTION 11/05/2023 Medical (General) History Medical History History ICD Code hypertension Arthritis anxiety chest pain Surgical History Surgery Date(Month/Year) breast reduction
[2025-03-04 13:17] LABS: MANUAL DIFF FLAG NO
[2025-03-04 13:23] LABS: Hematocrit 42.8 % (37.0-47.0); Hemoglobin 14.0 g/dl (12.0-16.0); Imm Gran Abs Auto 0.02 X10*3/uL (0.00-0.03); Imm Gran Pct Auto 0.3 % (0.0-0.4); Lymphocytes Absolute Auto 2.7 X10*3/uL (1.2-4.9); Mean Corpuscular HGB Conc 32.7 g/dl (31.0-35.0); Mean Corpuscular Hemoglobin 30.6 pg (27.0-33.0); Mean Corpuscular Volume 93.7 fL (80.0-98.0); NRBC Abs Auto 0.000 X10*3/uL (0.0-0.012); NRBC Pct Auto 0.0 /100WBC (0.0-0.2); Platelet Count 246 X10*3/uL (160-400); Red Blood Count 4.57 X10*6/uL (4.20-5.50); White Blood Count 6.5 X10*3/uL (4.8-10.8)
[2025-03-04 13:43] LABS: Alanine Aminotransferase 17 U/L (0-31); Albumin Level 4.3 g/dL (3.5-5.0); Alkaline Phosphatase 84 U/L (39-117); Anion Gap 11 (12-20); Aspartate Amino Transferase 38 U/L (5-31); Blood Urea Nitrogen 10 mg/dL (9-16); Calcium 9.5 mg/dL (8.4-10.2); Carbon Dioxide 29 mmol/L (22-29); Chloride 106 mmol/L (96-108); Cholesterol 221 mg/dL (<200); Estimated Glomerular Filt Rate > 60; HDL Cholesterol 38 mg/dL (>40); Magnesium 2.0 mg/dL (1.6-2.6); Potassium 3.7 mmol/L (3.3-5.1); Sodium 142 mmol/L (135-145); Total Protein 7.6 g/dL (6.5-8.0); Triglycerides 150 mg/dL (<150)
== END 2025-03-04 11:11 | disposition home or self-care (01) ==
LOC: HO.HMGCX 11:10
PROVIDERS: PCP Internal Medicine; Visit Provider Internal Medicine
DX: Z00.00 Encounter for general adult medical examination without abnormal findings (principal); I10 Essential (primary) hypertension; R25.2 Cramp and spasm; M25.512 Pain in left shoulder
CPT/HCPCS: 36415; 73030; 80053; 80061; 83735; 85025

== ENCOUNTER → 2025-03-04 11:19 | Outpatient (BNV) | payer OTHER, SELFPAY | PROVIDERS: PCP Internal Medicine; Visit Provider Radiology Diagnostic Radiology | DX: M25.512 Pain in left shoulder (principal) | CPT/HCPCS: 73030 ==

== ENCOUNTER 2025-04-12 14:49 | Outpatient (REF) | payer OTHER, SELFPAY ==
--- NOTE | ~2025-04-12 | XR_ITS ---
EXAMINATION: XR LUMBOSACRAL SPINE CLINICAL INFORMATION: M54.50 - Low back pain, unspecified COMPARISON: None available. TECHNIQUE: Three views of the lumbosacral spine. FINDINGS: Vertebral body heights are maintained. No evidence of acute fracture. Grade 1 anterolisthesis of L3 on L4. Multilevel mild-moderate disc degenerative changes. Multilevel facet degeneration. No suspicious bony lesion. SI joints are symmetric. No abnormal soft tissue calcification. Question transitional anatomy on the lateral view. Recommend radiographic and clinical correlation prior to any procedure. XR/XR lumbar spine 2-3V IMPRESSION: No acute findings. Mild-moderate lumbar spondylosis Question transitional anatomy. Recommend clinical and radiographic correlation prior to any procedure. Electronically signed by: Rashid Bosch MD 04/13/2025 10:12 AM [facility]
== END 2025-04-12 14:50 | disposition home or self-care (01) ==
LOC: HO.XRAY 14:49
PROVIDERS: PCP Internal Medicine; Visit Provider Internal Medicine
DX: M54.50 Low back pain, unspecified (principal); R26.81 Unsteadiness on feet
CPT/HCPCS: 72100

== ENCOUNTER 2025-04-12 14:49 | Outpatient (AMB) | payer OTHER, SELFPAY ==
--- OUTSIDE RECORDS SUMMARY | 2023-12-17 09:00 | XMS_ITS ---
Author Organization [facility] [address] Address [address] [place] [address] Care Team Providers Care Automotive Electrical Helper Name Role Phone Sharda Guzman Primary Care Provider Unavaila Venice Morris Unavailable [phone] Encounters Encounter Location Date Provider Diagnosis [facility] [address] [address] 12/17/2023 Venice Quispe Plan Of Treatment No Information Progress Notes * Mahendra REYESeDOB: 6 (59 yo F)Acc No.[id number]:12/17/2023 Patient: Marika Emely red Provider: Kathy Quispe PA-C :1965 A ge:58 Y S ex:Female Date:12/17/2023 Address:[address] [place], [place] [id number] Pcp:Sharda Guzman * Electronic signature of Venice Quispe PA-C on 04/12/2025 at 08:55 PM EST Sign off status: Pending * Provider: Kathy Quispe PA-C Date: 0 12/17/2023 Generated for Printi ng/Facandisg/eTransmitting on: 1 06/13/2024 08:55 PM EST
--- OUTSIDE RECORDS SUMMARY | 2024-07-19 10:00 | XMS_ITS ---
Author Organization [facility] [address] Address [address] [place] [address] Care Team Providers Care Supervising Producer Name Role Phone Sharda Guzman Primary Care Provider Unavaila Venice Morris Unavailable [phone] Encounters Encounter Location Date Provider Diagnosis [facility] [address] [address] 07/19/2024 Venice Quispe Plan Of Treatment No Information Progress Notes * Mahendra REYESeDOB: 6 (59 yo F)Acc No.[id number]:07/19/2024 Patient: Emely Bettencourt Provider: Kathy Quispe PA-C :1965 A ge:59 Y S ex:Female Date:07/19/2024 Address:[address] [place], [place] [phone] Pcp:Sharda Guzman * Electronic signature of Venice Quispe PA-C on 04/12/2025 at 08:55 PM EST Sign off status: Pending * Provider: Kathy Quispe PA-C Date: 0 07/19/2024 Generated for Laureni mike/Falu/eTransmitting on: 1 06/13/2024 08:55 PM EST
--- OUTSIDE RECORDS SUMMARY | 2024-12-21 10:30 | XMS_ITS ---
Author Organization [facility] Address [address] [place] [address] Care Team Providers Care Military Pilot Name Role Phone Sharda Guzamn Primary Care Provider Venice Oconnor Unavailable [phone] Medications Medication SIG (Take, Route, Frequency, Duration) Notes Start Date End Date Status Wegovy 0.25 MG/0.5ML Solution Auto-injector 0.5 mL Subcutaneous once weekly; Duration: 30 days 11/04/2024 Active Zepbound 5 MG/0.5ML Solution Auto-injector 0.5 mL Subcutaneous; Duration: 30 day(s) Active Sertraline HCl 50 MG Tablet 1 tablet Orally Once a day A ctive Verapamil HCl ER 300 MG Capsule Extended Release 24 Hour TAKE 1 CAPSULE BY MOUTH AT BEDTIME Oral; Duration: 90 Days Active Magnesium Glycinate 100 MG Capsule TAKE 2 CAPSULES BY MOUTH EVERY DAY Oral; Duration: 30 Days Active Encounters Encounter Location Date Provider Diagnosis [facility] [address] [place] [address] 12/21/2024 Venice Quispe Plan Of Treatment No Information Progress Notes * Mahendra REYESeDOB: 6 (59 yo F)Acc No.[id number]:12/21/2024 Patient: Emely Bettencourt Provider: Kathy Quispe PA-C :1965 A ge:59 Y S ex:Female Date:12/21/2024 Address:[address] [place], [place] [address] Pcp:Sharda Guzman Subjective: * Chief Complaints: * Medications: T akingSertraline HCl 50 MG Tablet 1 tablet Orally Once a day Magnesium Glycinate 100 MG Capsule TAKE 2 CAPSULES BY MOUTH EVERY DAY Oral Verapamil HCl ER 300 MG Capsule Extended Release 24 Hour TAKE 1 CAPSULE BY MOUTH AT BEDTIME Oral Zepbound 5 MG/0.5ML Solution Auto-injector 0.5 mL Subcutaneous Wegovy 0.25 MG/0.5ML Solution Auto-injector 0.5 mL Subcutaneous once weekly Taking Sertraline HCl 50 MG Tablet 1 tablet Orally Once a day Taking Magnesium Glycinate 100 MG Capsule TAKE 2 CAPSULES BY MOUTH EVERY DAY Oral Taking Verapamil HCl ER 300 MG Capsule Extended Release 24 Hour TAKE 1 CAPSULE BY MOUTH AT BEDTIME Oral Taking Zepbound 5 MG/0.5ML Solution Auto-injector 0.5 mL Subcutaneous Taking Wegovy 0.25 MG/0.5ML Solution Auto- injector 0.5 mL Subcutaneous once weekly * Electronic signature of Venice Quispe PA-C on 04/12/2025 at 08:54 PM EST Sign off status: Pending * Provider: Kathy Quispe PA-C Date: 0 12/21/2024 Generated for Pérez mckeon/Noel/Zabrina on: 1 06/13/2024 08:54 PM EST
--- NOTE | 2025-04-12 14:53 | A.OFFPC_ITS ---
Vital Signs 04/12/25 14:55 Height 5 ft 6.75 in Weight 188 lb 6 oz BMI 29.7 BP 106/70 Blood Pressure Location Lt brachial Position Sitting Respiration 16 Pulse 74 Pulse Source Pulse Oximeter Temp 97.1 F Temp Source Temporal Artery Scan Pulse Oximetry (%) 97 Oxygen Delivery Method Room Air Intake Visit Reasons: balance issues Official Greeter Required: No Accompanied by: Self / Same As Patient Allergies sulfamethoxazole (From Bactrim) Allergy (Intermediate, Verified 04/12/25 14:54) lock jaw trimethoprim (From Bactrim) Allergy (Intermediate, Verified 04/12/25 14:54) lock jaw Medication List - Last Reconciled 04/12/25 by Sahrda Kent MD aspirin 81 mg PO DAILY ibuprofen 800 mg PO TID PRN semaglutide (weight loss) (Wegovy) 1.7 mg (0.75 mL) subcut QWEEK sertraline (Zoloft) 75 mg (1.5 x 50 mg) PO DAILY verapamil ER 300 mg PO BEDTIME Tobacco use date assessed: 03/02/25 Dental Screening Dental Screen Date: 03/02/25 HPI HPI Comments History of Present Illness Details The patient is a 59 year old female presenting for follow-up for balance issues, recurrent falls, and medication management. Gait Instability and Falls: The patient reports occasionally feeling off or unsteady when walking, which causes her to grab onto things for support. 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 During the second fall, she was walking fast, stepped up onto a stage, slid, and fell flat on her face, injuring her nose, right ankle area, thighs, and right shoulder. The first fall involved falling down steps and resulted in back pain that began about two weeks after the incident. She denies any numbness or tingling p receding the falls. She reports poor sleep and tiredness, which she attributes to a bad mattress. For the work-related falls, she sought care at [facility] and is attending physical therapy there twice a week for her shoulder. Nipple Discharge: About a month and a half ago, the patient woke up and noticed blood on her shirt, which she initially dismissed. After a third occurrence where she observe d blood coming from her right nipple, she contacted her direct of real estate. She saw her direct of real estate, who placed an order for an evaluation at the [facility]. She has an appointment scheduled for next week. The bloody discharge from the right nipple persists. Anxiety and Medication Adherence: The patient reports increased anxiety over the last two weeks, related to waiting for her breast evaluation. She admits to not taking her sertraline 1.5 tablets daily as prescribed due to a hectic morning routine. Similarly, she is not taking her magnesium supplement daily for calf spasms, only taking it when she feels symptoms. She reports feeling overwhelmed at home with household responsibilities. Hypercholesterolemia: Recent blood work showed that her cholesterol was elevated. HTN-stable [facility] Medical History (Updated 04/13/25 @ 17:38 by Sharda Kent MD) Fall Gait instability Lower back pain Post-menopausal Cramp of toe Left shoulder pain Obesity Routine adult health maintenance Hypertension Surgical History (Updated 03/01/25 @ 15:56 by Maeve Schafer) History of colonoscopy (~11/11/22) Family History (Updated 03/02/25 @ 17:27 by Sharda Kent MD) Other Leukemia Social History Housing: House Patient Tobacco Use Status: Former Tobacco user Years Smoked: occasional back in her 20's e-Cigarette/Vaping Use: Never Used Current occupational status: employed Current occupation: Safety Administrator Questionnaire AUDIT C Alcohol Use Questionnaire (AUDIT-C) 1. How often do you have a drink containing alcohol?: Never 3. How often do you have six or more drinks on one occasion?: Never Total Score: 0 Review of Systems Narrative Review of Systems - Constitutional: Reports fatigue and poor sleep, which she relates to her mattress quality. Denies dizziness. - Neurological: Reports feeling unsteady and occasionally off balance while walking. Reports being fearful of falling. Denies numbness or tingling prior to falls. - Musculoskeletal: Reports right shoulder pain that keeps her up at night, back pain, and sore thighs following a recent fall. Reports severe, spasmodic calf pain that awakens her from sleep. - Breast: Reports persistent bloody discharge from the right nipple. - Psychiatric: per hpi Physical exam (Primary Care) Vital Signs: Last Vital Signs Temp 97.1 F 04/12/25 14:55 Pulse 74 04/12/25 14:55 Resp 16 04/12/25 14:55 BP 106/70 04/12/25 14:55 Pulse Ox 97 04/12/25 14:55 Oxygen Delivery Method Room Air 04/12/25 14:55 BMI result Body Mass Index 29.7 Tobacco/Smoking Status: Tobacco use Status Tobacco use date assessed 03/02/25 04/12/25 14:59 Patient Tobacco Use Status Former Tobacco user 04/12/25 14:59 e-Cigarette/Vaping Use Never Used 04/12/25 14:59 Narrative Physical Exam - Lungs: Clear to auscultation bilaterally - Card: normal s1, s2, soft murmur across precordium - Abd: SNTND, + BS - Back: Tenderness to palpation over the mid-spine. Coding Level of Care Code Est Pt Level 4 (42684) Add On Problem Visit Only Diagnoses Gait instability R26.81 Acute low back pain, unspecified back pain laterality, unspecified whether sciatica present M54.50 Chronicity: acute Back pain laterality: unspecified Sciatica presence: unspecified whether sciatica present Fall, subsequent encounter W19.XXXD Encounter type: subsequent encounter Primary hypertension I10 Hypertension type: primary hypertension Assessment & Plan Assessment & Plan (1) Gait instability: Code(s): R26.81 - Unsteadiness on feet Category: Medical (2) Lower back pain: Code(s): M54.50 - Low back pain, unspecified Category: Medical Qualifiers: Chronicity: acute Back pain laterality: unspecified Sciatica presence: unspecified whether sciatica present Qualified Code(s): M54.50 - Low back pain, unspecified (3) Fall: Code(s): W19.XXXA - Unspecified fall, initial encounter Category: Medical Qualifiers: Encounter type: subsequent encounter Qualified Code(s): W19.XXXD - Unspecified fall, subsequent encounter (4) Hypertension: Code(s): I10 - Essential (primary) hypertension Category: Medical Qualifiers: Hypertension type: primary hypertension Qualified Code(s): I10 - Essential (primary) hypertension Plan Assessment and Plan 1. Gait Instability and Back Pain - The patient presents with unsteadiness and a history of two falls, with the second fall on March 25 resulting in multiple injuries and subsequent back pain. - She has tenderness over the mid-spine on exam. - To rule out a compression fracture, an order will be placed for a back x-ray to be done today. - An order for physical therapy for a balance and back pain evaluation will also be placed. - If Workman's Comp does not address the back pain, a referral to follow up with her green building design specialist will be considered. 2. Right Nipple Discharge - The patient has persistent bloody discharge from the right nipple and has an upcoming mammogram. 3. Muscle Spasms - The patient reports calf spasms that are relieved by magnesium but is non- adherent. - advised to ensure that she takes medication consistently. 4. Anxiety and Medication Non-adherence - The patient is experiencing increased anxiety and is not taking her sertraline daily, which can lead to rebound anxiety. - She was counseled on the importance of taking sertraline 1.5 tablets daily and to set an alarm to help with adherence. - She was also counseled on stress management. 5. Hypercholesterolemia - Recent labs showed elevated cholesterol. - This will continue to be monitored. Will consider statin once her ongoing pain issues resolve so as not to confound symptoms, will also discuss possibly starting zetia depending on how prolonged her pain syndrome is. 6. Weight Management - The patient is tolerating the Wegovy 1.7 mg injection. 7. Follow up as scheduled in May. Plan - An order will be placed for a back x-ray, and the patient is to have it done today to evaluate for a potential compression fracture subsequent to her recent fall. - An order will be placed for physical therapy for a balance and back pain ev aluation. - The patient will be counseled to increase her magnesium supplement to two 250 mg tablets daily for calf spasms and to take it consistently. - The patient was counseled on the importance of daily adherence to her sertraline 1.5 tablets for anxiety management. - Monitor hypercholesterolemia. - Continue Wegovy 1.7 mg. The patient is to send a message next week to report on her tolerance of the medication. - The patient will follow up with her direct of real estate for her right nipple discharge. Patient Instructions - Go for a back X-ray today to check for any injuries from your recent fall. - Call the physical therapy office at the provided number to schedule an appointment for your back pain if it is not being addressed by your workman's comp. - Take your sertraline medication (1.5 tablets) every single day to help with your anxiety. - Take two of your 250 mg magnesium pills every day for the muscle spasms in your calves. - Continue taking your weekly Wegovy 1.7 mg injection. Orders: Orders XR lumbar spine 2-3V 04/12/25 M54.50 - Low back pain, unspecified PT Evaluation and Treatment 04/12/25 M54.50 - Low back pain, unspecified, R26.81 - Unsteadiness on feet, W19.XXXA - Unspecified fall, initial encounter Medications: New magnesium citrate,mag oxide 500 mg (2 x 250 mg) PO DAILY 60 caps 0RF 30 days
[2025-04-12 14:55] VITALS: BP 106/70; PULSE 74; RESP 16; TEMP 36.2; O2SAT 97; BMI 29.7
--- OUTSIDE RECORDS SUMMARY | 2025-04-12 20:55 | XMS_ITS | Patient Health Record ---
Author Organization [facility] Address [address] [place] [address] Care Team Providers Care Feed Weigher Name Role Phone Sharda Guzman Primary Care Provider Venice Oconnor Unavailable [phone] Allergies Allergen (clinical drug ingredient) Drug/Non Drug Allergy documented on EMR Reaction Allergy Type Onset Date Status sulfamethoxazole / trimethoprim Bactrim Unknown Drug Allergy Active Reason For Referral No Information Medications Medication SIG (Take, Route, Frequency, Duration) Notes Start Date End Date Status Verapamil HCl ER 300 MG Capsule Extended Release 24 Hour TAKE 1 CAPSULE BY MOUTH AT BEDTIME Oral; Duration: 90 Days Active Zepbound 5 MG/0.5ML Solution Auto-injector 0.5 mL Subcutaneous; Duration: 30 day(s) Not-Taking Wegovy 1 MG/0.5ML Solution Auto-injector 0.5 mL Subcutaneous once weekly; Duration: 30 days Active Sertraline HCl 50 MG Tablet 1 tablet Orally Once a day Active Magnesium Glycinate 100 MG Capsule TAKE 2 CAPSULES BY MOUTH EVERY DAY Oral; Duration: 30 Days Active Social History Tobacco Use: Social History Observation Description Date Details (start date - stop date) Never Smoker NA - NA Social History Drugs/Alcohol: Social Info Question Answer Notes Alcohol Screen (Audit-C) Did you have a drink containing alcohol in the past year? No Points 0 Interpretation Negative Drugs Have you used drugs other than those for medical reasons in the past 12 months? No Tobacco Use: Social Info Question Answer Notes Tobacco Use/Smoking Are you a nonsmoker Problems Problem Type SNOMED Code ICD Code Onset Dates Problem Status W/U Status Risk Notes Problem Vitamin D deficiency (95225857) Vitamin D deficiency, unspecified (E55.9) Active confirmed Problem Obesity due to excess calories (858916399) Other obesity due to excess calories (E66.09) Active confirmed Problem Anxiety (98987975) Anxiety (F41.9) Active confirmed Problem Thyroid nodule (665961718) Thyroid nodule (E04.1) Active confirmed Problem Obstructive sleep apnea syndrome (85200700) ALEXANDER (obstructive sleep apnea) (G47.33) Active confirmed Problem Obese class II (399521141792506 ) BMI 35.0-35.9,adult (Z68.35) Active confirmed Problem BMI 30+ - obesity (999846342) BMI 32.0-32.9,adult (Z68.32) Active confirmed Problem Primary hypertension (05889267) Primary hypertension (I10) Active confirmed Problem Body mass index 30.00 to 34.99 (995766382942643 ) BMI 31.0-31.9,adult (Z68.31) Active confirmed Problem Body mass index 30.00 to 34.99 (751379973326323 ) BMI 34.0-34.9,adult (Z68.34) Active confirmed Vital Signs Heart Rate 81 /min 01/25/2025 Oximetry 99 % 01/25/2025 Blood pressure diastolic 82 mm Hg 01/25/2025 Height 65.75 in 01/25/2025 Blood pressure systolic 132 mm Hg 01/25/2025 Weight 192.9 lbs 01/25/2025 BMI 31.37 kg/m2 01/25/2025 Encounters Encounter Location Date Provider Diagnosis [facility] [address] [address] 07/21/2024 Venice Svrcek Other obesity due to excess calories E66.09 ; BMI 35.0-35.9,adult Z68.35 ; ALEXANDER (obstructive sleep apnea) G47.33 ; Primary hypertension I10 ; Anxiety F41.9 ; Thyroid nodule E04.1 and Weight loss counseling, encounter for Z71.3 [facility] [address] [address] 08/25/2024 Venice Svrcek Other obesity due to excess calories E66.09 ; BMI 34.0-34.9,adult Z68.34 ; ALEXANDER (obstructive sleep apnea) G47.33 ; Primary hypertension I10 ; Anxiety F41.9 ; Thyroid nodule E04.1 and Weight loss counseling, encounter for Z71.3 [facility] [address] [address] 10/07/2024 Venice Svrcek Other obesity due to excess calories E66.09 ; BMI 32.0-32.9,adult Z68.32 ; ALEXANDER (obstructive sleep apnea) G47.33 ; Primary hypertension I10 and Weight loss counseling, encounter for Z71.3 [facility] [address] 11/04/2024 Venice Svrcek Other obesity due to excess calories E66.09 ; BMI 32.0-32.9,adult Z68.32 ; ALEXANDER (obstructive sleep apnea) G47.33 ; Primary hypertension I10 and Weight loss counseling, encounter for Z71.3 [facility] [address] 01/25/2025 Venice Svrcek Other obesity due to excess calories E66.09 ; BMI 31.0-31.9,adult Z68.31 ; ALEXANDER (obstructive sleep apnea) G47.33 ; Primary hypertension I10 and Weight loss counseling, encounter for Z71.[address] [facility] [address] [place] [address] 06/23/2024 Venice Svrcek [facility] [address] 07/21/2024 Venice Svrcek [facility] [address] [address] 07/26/2024 Venice Svrcek Other obesity due to excess calories E66.09 [facility] [address] 10/07/2024 Venice Svrcek Other obesity due to excess calories E66.[address] [facility] [address] [place] [address] 10/28/2024 Venice Svrcek [facility] [address] [address] 11/04/2024 Venice Svrcek [facility] [address] [place] [address] 11/25/2024 Venice Svrcek [facility] [address] [place] [address] 12/20/2024 Venice Svrcek [facility] [address] [place] [address] 12/22/2024 Venice Svrcek Other obesity due to excess calories E66.[address] [facility] [address] [place] [address] 03/07/2025 Venice Svrcek Assessments Encounter Date Diagnosis (ICD Code) Assessment [...] Dictation was accomplished with the use of [employer] voice recognition software, prone to medical misidentifications [...] Dictation was accomplished with the use of [employer] voice recognition software, prone to medical misidentifications [...] Dictation was accomplished with the use of [employer] voice recognition software, prone to medical misidentifications [...] Dictation was accomplished with the use of [employer] voice recognition software, prone to medical misidentifications [...] Dictation was accomplished with the use of [employer] voice recognition software, prone to medical misidentifications [...] Dictation was accomplished with the use of [employer] voice recognition software, prone to medical misidentifications [...] Dictation was accomplished with the use of [employer] voice recognition software, prone to medical misidentifications [...] Dictation was accomplished with the use of [employer] voice recognition software, prone to medical misidentifications [...] Dictation was accomplished with the use of [employer] voice recognition software, prone to medical misidentifications [...] Dictation was accomplished with the use of [employer] voice recognition software, prone to medical misidentifications [...] Dictation was accomplished with the use of [employer] voice recognition software, prone to medical misidentifications [...] Dictation was accomplished with the use of [employer] voice recognition software, prone to medical misidentifications [...] Dictation was accomplished with the use of [employer] voice recognition software, prone to medical misidentifications [...] Dictation was accomplished with the use of [employer] voice recognition software, prone to medical misidentifications [...] Dictation was accomplished with the use of [employer] voice recognition software, prone to medical misidentifications [...] Dictation was accomplished with the use of [employer] voice recognition software, prone to medical misidentifications [...] Dictation was accomplished with the use of [employer] voice recognition software, prone to medical misidentifications [...] Dictation was accomplished with the use of [employer] voice recognition software, prone to medical misidentifications [...] Dictation was accomplished with the use of [employer] voice recognition software, prone to medical misidentifications [...] Dictation was accomplished with the use of [employer] voice recognition software, prone to medical misidentifications [...] Dictation was accomplished with the use of [employer] voice recognition software, prone to medical misidentifications [...] in 1 month sooner with any concerns. #LAEXANDER. Reports history of ALEXANDER. She was given [...] Dictation was accomplished with the use of [employer] voice recognition software, prone to medical misidentifications [...] Dictation was accomplished with the use of [employer] voice recognition software, prone to medical misidentifications [...] Dictation was accomplished with the use of [employer] voice recognition software, prone to medical misidentifications [...] Dictation was accomplished with the use of [employer] voice recognition software, prone to medical misidentifications [...] Dictation was accomplished with the use of [employer] voice recognition software, prone to medical misidentifications [...] Dictation was accomplished with the use of [employer] voice recognition software, prone to medical misidentifications [...] Dictation was accomplished with the use of [employer] voice recognition software, prone to medical misidentifications [...] Dictation was accomplished with the use of [employer] voice recognition software, prone to medical misidentifications [...] 11/05/2023 VITAMIN D, 1,25 DIHYDROXY LC/MS/MS 11/04 Insurance Providers Payer Name Payer Address Payer Phone Subscriber Number Group Number Insured Name Patient Relationship to Insured Coverage Start Date Coverage End Date [facility] [address] [place] [id number] [phone] [id number] Emely White Self - patient is the insured 12/17/202 4 Medications Administered Medication Instructions Date of Administration Dosage Notes MICC B12 INJECTION 11/05/2023 Medical (General) History Medical History History ICD Code hypertension Arthritis anxiety chest pain Surgical History Surgery Date(Month/Year) breast reduction
--- OUTSIDE RECORDS SUMMARY | 2025-04-12 20:55 | XMS_ITS | Data Portability ---
Author Organization [facility]spin[facility], [facility] Address [address] [place] [address] Assessment Encounter Date Assessment Date Assessment LastModified [...] and hindfoot dated 06/14/2023 available in the [facility] PACs was independently reviewed. Patient has inflammatory [...] agrees with the plan, all questions answered. [email or web address] Not available 07/24/2023 11:06:54 Plan of Treatment [...] Address Organization Details Recorded Time No complaints 655294877 Active Status : 'A'; Not Available [facility] 4 09:23:37 Tendinitis of left posterior tibial tendon 1180460670357 00 Active 2023 Hema Terry MD [address], [place], [address] , [facility] 4 13:26:19 Acquired pes planus of left foot 6730800565322 08 Active 2023 Hema Terry MD [address], [place], [address] , [facility] 4 13:26:20 Problem Notes None recorded. Medical Equipment None Reported. Allergies Allergen ID Allergen Name Allergen Category Reaction Reaction Severity Criticality Documentation Date Start Date Code Code System Note Provider Name and Address Organization Details Recorded Time 98839 Bactrim medicatio n Not available Not available Not available 07/07/20232020 81589 9 RxNorm Not Available [facility] 4 12:31:58 Medications Name Sig Start Date [...] Updated DateTime 07/22/2023 167.64 cm 33.7 kg/m2 20326.81 g Aimee Lawrence [facility] 07/22/2023 13:50:36 Social History Question Answer Notes LastModified by Organizat ion Details LastModified Time Tobacco Smoking Status Never Smoker Aimee drew [place] [facility] 07/22/2023 13:53:35 Are You Blind Or Do [...] anxious, or unable to sleep at night)? [id number] Information not available 07/22/2023 Do you have difficulty concentrating, remembering or making decisions? No Information no t available 07/22/2023 Family History Nothing Reported. Medical History Condition Response Coronary Artery Disease N Anxiety/Depression N Emphysema N COPD N Pacemaker N Vascular Disease N Gastrointestinal Disease N Autoimmune disease N Orthotics N Arthritis Y Blood Clot N Acid Reflux (GERD) N Cancer N Stroke N Rheumatoid Arthritis N Fibromyalgia N Allergies/Hayfever N Thyroid Problems N Anemia N Heart Attack (NM) N Diabetes N Bleeding Disorder N Seizures/Epilepsy N AIDS/HIV N Congestive Heart Failure (CHF) N Asthma N Peripheral Vascular Disease N Sleep Apnea Y Hepatitis N Heart Disease N Pulmonary Embolism N Hypertension Y Osteoporosis N Gynecological HistoryNo gynecological history recorded. Obstetrics History GPAL:G 0 P 0 0 0 0 Past Encounters Encounter ID Performer Location Encounter Start Date Encounter Closed Date Diagnosis/Indication Diagnosis SNOMED-CT Code Diagnosis ICD10 Code Diagnosis IMO Codes Diagnosis Note [id number] MD Silviano Kent [address] [place] [address] 07/22/2023 13:28:42 08/07/2023 08:23:22 Acquired pes planus of left foot 6619351639 68653 M21.42 Tendinitis of left posterior tibial tendon 0546205721 49052 M76.822 Pain of le ft ankle joint 2108406597 3391948 M25.572 Health Concerns Section Related Observation LastModified by Organization Detai ls LastModified Time None Recorded Concern Status LastModified by Organization Details LastModified Time None Recorded Advance Directives Directive None Recorded Payers Insurance Date Sequence Insurance Name Policy Number Policy Benavides Covered Member ID Benavides Member ID Guarantor Name 09/10/2023 1 [facility] [id number] Emely White [id number] Emely White OBGyn Episode No OBEpisode recorded.
--- OUTSIDE RECORDS SUMMARY | 2025-04-12 20:55 | XMS_ITS | Clinical Summary ---
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 Back and buttock pain worse with coughing or straining. Difficulty turning over in bed. no on past visit she also described left lower abdominal pain, with further questioning today it seems to be more left groin pain, at times it does go to the left anterior thigh. Per patient, prior CONSERVATION EDUCATOR eval for abdominal pain was negative. L/S [...] to musculoskeletal syndrome of menopause, can d/w CONSERVATION EDUCATOR or menopause specialist. All questions answered. I [...] degenerative changes but no spondylolysis or spondylolisthesis. [facility] pain management notes mention MRI lumbar [...] Obesity, unspecified 06/24/2006 Goiter 06/24/2006 Overview (04/02/2024): O update Lumbago 08/14/2005 Overview (04/02/2024): Sees Dr Nolan, [facility] Idiopathic scoliosis and kyphoscoliosis 08/15/19 06 Cervicalgia 08/14/2005 Immunizations Immunization Administration Dates Next Due PPD Test 11/10/2006,06/29/1996 Td Tetanus diptheria (Tdvax) 7yo and older 01/31 Tdap Tetanus diptheria acell ular pertussis (Boostrix; Adacel) 7yo and older 06/24/2006 Surgical History Surgery Date Site/Laterality Comments TUBAL LIGATION 2001 BREAST REDUCTION 05/05/2009 - 2010 Medical History [...] Years Used Date Smoking Tobacco: Former Cigarettes 0 Q uit: 05/05/1999 Passive Smoke Exposure: Never [...] on file Sexual Orientation Not on file Last Filed Vital Signs Vital Sign Reading [...] BMP Blood Test 09/20/2024 06/26/2006 COVID-19 Vaccine ( - 2024-2 6 season) 2025 03/27/2021, 08/14/2020, [...] Procedure Name Priority Date/Time Associated Diagnosis Comments HM PAP SMEAR Routine 02/23/2008 HEPATITIS C SCREENING Routine 09/10/2006 HIV SCREENING Routine 08/28/2006 ANNUAL BMP BLOOD TEST Routine 06/26/2006 LIPID PANEL Routine 06/26/2006 from Last 3 Months or Most Recently Relevant to Health Maintenance Results * Pap Smear (02/23/2008) [facility] abstracted, no interpretation [facility] Provider HEALTH MAINTENANCE Final Result * Hepatitis C Screening (09/10/2006) [facility] Hepatitis C Screening abstracted [facility] Provider HEALTH MAINTENANCE Final Result * HIV Screening (08/28/2006) [facility] HIV Screening abstracted [facility] Provider HEALTH MAINTENANCE Final Result * Annual BMP Blood Test (06/26/2006) [facility] Annual BMP Blood Test abstracted [facility] Provider HEALTH MAINTENANCE Final Result * (ABNORMAL) Lipid panel (06/26/2006) [facility] LDL/HDL Ratio 5(A) 0 - 4 Triglycerides 111 0 - 150 mg/dL Cholesterol 189 0 - 200 mg/dL HDL 42 >=40 mg/dL LDL Cholesterol 125(A) 0 - 100 mg/dL Blood Venous blood specimen / Unknown [facility] Provider LAB BLOOD ORDERABLES Tana l Result from Last 3 Months or Most Recently Relevant to Health Maintenance Insurance [facility] Care Teams Elementary Librarian Relationship Specialty Start Date End Date Venice Quispe PA [address] [place] [id number] PCP - General 09/15/24
== END 2025-04-12 15:40 | disposition home or self-care (01) ==
LOC: HO.HMCHD 14:49
PROVIDERS: PCP Internal Medicine; Visit Provider Internal Medicine
DX: R26.81 Unsteadiness on feet (principal); M54.50 Low back pain, unspecified; W19.XXXD Unspecified fall, subsequent encounter; I10 Essential (primary) hypertension

== ENCOUNTER → 2025-04-12 15:52 | Outpatient (BNV) | payer OTHER, SELFPAY | PROVIDERS: PCP Internal Medicine; Visit Provider Radiology Diagnostic Ultrasound | DX: M54.50 Low back pain, unspecified (principal) | CPT/HCPCS: 72100 ==